=== PATIENT | female | born 1940 | race Caucasian/White ===

== ENCOUNTER 2019-01-18 18:54 | Inpatient (IN) | payer MEDICARE, MEDICAID ==
[2019-01-18] MEDS ORDERED: Sodium Chloride 0.9% 10 ML Syringe FLUSH PRN ×4 (18:55→22:24)
--- NOTE | 2019-01-18 19:03 | PCM.SN ---
- Free Text/Narrative Note: Graciela De La Cruz is a 78-year-old female who is a resident of [facility] in [place]. She has lived there since 2011. She was last seen on routine basic care rounds on January 04, 2019 and was found to be in stable condition. Earlier this week [facility] had several cases of positive influenza A in several other residents. Two of those residents are now hospitalized. I received a call from the nurse assistant office manager at [facility] stating that Graciela had some upper respiratory tract symptoms. Her vital signs were stable and she had no fever, but she was coughing. She does have a history of mild COPD which is stable. She was started on Levaquin 500 mg once daily for seven days. She was also started on Tamiflu 75 mg twice a day, both because of positive influenza in the facility and because she was symptomatic. Influenza testing was not performed. I received a call this evening from one of the aides at [facility]. She stated that Graciela had not been eating and drinking today and seems somewhat dry. When asked, she thought the Graciela possibly was making less urine but was not sure. vital signs: BP 152/85. RR 14. HR 72. Temp 98.6. O2 sat 91% on room air. She will be seen in the emergency department for further evaluation. Past Medical History: Hypertension, controlled. COPD, mild, on no active meds at this time. Depression with anxiety, stable. Cerebrovascular disease. Diverticulosis. Dyslipidemia. Osteoarthritis. Headaches in the past, resolved, thought to be vascular or due to cervical arthritis. Headaches improved with the use of Verapamil which was recently decreased. Medications: [facility] When seen on rounds on January 04, 2019 her Verapamil was decreased to 40 mg three times a day, as she has been headache free for some time now. Her sertraline was decreased to 25 mg daily, as her mood and affect were stable. impression: 78-year-old female with past medical history as above. Currently being treated for respiratory tract infection, as well as exposure to influenza. [facility] staff report decreased oral intake over the course of the day with possible mild dehydration. The case was discussed with Taran Cross NP. Copies of Graciela's most recent labs were faxed to the emergency department for review.
--- NOTE | 2019-01-18 19:03 | EDM.PDOC ---
ED HPI GENERAL MEDICAL PROBLEM - General Chief Complaint: Respiratory Problem Stated Complaint: OWN VEHICLE, DEHYDRATIO Time Seen by Provider: 01/18/19 18:56 Source of Information: Reports: Patient History Limitations: Reports: No Limitations - History of Present Illness INITIAL COMMENTS - FREE TEXT/NARRATIVE: Comes emergency department today from the basic care assisted living facility here in town with concerns of cough congestion poor appetite and generalized fatigue. The patient was exposed to influenza A. She has been on Levaquin 500 mg a day as well as Tamiflu 75 mg by mouth twice a day since . She has become increasingly more short of breath with a very congested cough. No fever no chills. No pain in her chest. Generalize fatigue and malaise. No syncope. No palpitations. No nausea no vomiting. She does complain of a headache. No diarrhea. No hematuria dysuria or urinary frequency. Headache Pain Score (Numeric/FACES): 8 - Related Data Allergies Allergy/AdvReac Type Severity Reaction Status Date / Time latex Allergy Rash Verified 01/18/19 20:51 Plastic tape AdvReac Mild Rash Uncoded 01/18/19 20:51 Home Meds: Home Meds Acetaminophen [Tylenol Extra Strength] 500 mg PO Q6HR PRN 04/04/15 [History] Acetaminophen [Tylenol] 650 mg PO TID 04/04/15 [History] Dorzolamide [Trusopt 2% Ophth Soln] 1 drop EYEBOTH BID 04/04/15 [History] Famotidine [Pepcid AC] 20 mg PO DAILY 04/04/15 [History] Fexofenadine HCl [Mae Allergy] 60 mg PO BEDTIME 04/04/15 [History] Latanoprost [Xalatan 0.005% Ophth Soln] 1 drop EYEBOTH BEDTIME 04/04/15 [History ] Aspirin 325 mg PO BRK 06/10/15 [History] Clopidogrel [Plavix] 75 mg PO DAILY 06/10/15 [History] Levofloxacin [Levaquin] 500 mg PO DAILY 01/18/19 [History] Oseltamivir [Tamiflu] 75 mg PO BID 01/18/19 [History] Sertraline [Zoloft] 25 mg PO BEDTIME 01/18/19 [History] Verapamil [Calan] 40 mg PO Q8H 01/18/19 [History] Past Medical History Other Gastrointestinal History: gastric ulcers Social & Family History - Living Situation & Occupation Living situation: Reports: , Assisted Living Occupation: Retired ED ROS GENERAL - Review of Systems Review Of Systems: ROS reveals no pertinent complaints other than HPI. ED EXAM, GENERAL - Physical Exam Exam: See Below Free Text/Narrative:: Patient is only able to speak in 3-4 word sentences. Her oxygen saturation is about 88-89% on room air does improve following the placement of 2 L of nasal cannula oxygen. Exam Limited By: No Limitations General Appearance: Alert, WD/WN, No Apparent Distress Eye Exam: Bilateral Eye: Normal Inspection Ears: Normal External Exam, Other (bilaterally occluded) Nose: Normal Inspection, Normal Mucosa Throat/Mouth: Normal Teeth, Other (Oral mucosa is quite dry.) Head: Atraumatic, Normocephalic Neck: Normal Inspection, Supple, Non-Tender Respiratory/Chest: Chest Non-Tender, Decreased Breath Sounds (Bilateral), Rhonchi (Right-sided midlung field down.), Wheezing (Lateral). No: Accessory Muscle Use, Retractions Cardiovascular: Normal Peripheral Pulses, Regular Rate, Rhythm Peripheral Pulses: 2+: Radial (L), Radial (R), Posterior Tibial (L), Posterior Tibial (R), Dorsalis Pedis (L), Dorsalis Pedis (R) GI/Abdominal: Normal Bowel Sounds, Soft, Non-Tender (Female) Exam: Deferred Rectal (Female) Exam: Deferred Back Exam: Normal Inspection, Full Range of Motion Extremities: Normal Inspection, Normal Range of Motion, No Pedal Edema, Normal Capillary Refill Neurological: Alert, Oriented, No Motor/Sensory Deficits Psychiatric: Normal Affect, Normal Mood Skin Exam: Warm, Dry, Intact, No Rash, Pallor Course - Vital Signs Last Recorded V/S: Last Vital Signs Temp 36.5 C 01/18/19 20:50 Pulse 79 01/18/19 20:50 Resp 22 H 01/18/19 20:50 BP 150/91 H 01/18/19 20:50 Pulse Ox 97 01/18/19 20:50 - Orders/Labs/Meds Orders: Active Orders 24 hr Category Date Time Status RT Aerosol Therapy [RC] ASDIRECTED Care 01/18/19 19:04 Active CULTURE BLOOD [BC] Stat Lab 01/18/19 19:00 Received CULTURE BLOOD [BC] Stat Lab 01/18/19 19:06 Results CULTURE SPUTUM + SMEAR [RM] Stat Lab 01/18/19 19:41 Ordered UA W/MICROSCOPIC [URIN] Stat Lab 01/18/19 18:56 Ordered Lactated Ringers [Ringers, Lactated] 1,000 ml Med 01/18/19 19:51 Active IV .BOLUS Sodium Chloride 0.9% [Saline Flush] Med 01/18/19 18:55 Active 10 ml FLUSH ASDIRECTED PRN Blood Culture x2 Reflex Set [OM.PC] Stat Oth 01/18/19 19:03 Ordered Peripheral IV Insertion Adult [OM.PC] Stat Oth 01/18/19 18:56 Ordered Medication Orders Lactated Ringer's (Ringers, Lactated) 1,000 mls @ 500 mls/hr IV .BOLUS ONE Stop: 01/18/19 21:50 Last Admin: 01/18/19 19:55 Dose: 500 mls/hr Sodium Chloride (Saline Flush) 10 ml FLUSH ASDIRECTED PRN PRN Reason: Keep Vein Open Last Admin: 01/18/19 19:00 Dose: 10 ml Labs: Laboratory Tests 01/18/19 01/18/19 01/18/19 Range/Units 19:00 19:00 19:00 WBC 10.0 (5.0-10.0) 10^3/uL RBC 5.22 (4.2-5.4) 10^6/uL Hgb 13.9 D (12.0-16.0) g/dL Hct 40.9 (37.0-47.0) % MCV 78.4 L D (80-100) fL MCH 26.6 L (27.0-34.0) pg MCHC 34.0 (33.0-35.0) g/dL Plt Count 245 D (150-450) 10^3/uL Neut % (Auto) 73.7 (42.2-75.2) % Lymph % (Auto) 14.7 L (20.5-50.1) % [place] % (Auto) 11.0 H (2-8) % Eos % (Auto) 0.5 L (1.0-3.0) % Baso % (Auto) 0.1 (0.0-1.0) % Sodium (135-145) mmol/L Potassium (3.6-5.0) mmol/L Chloride (101-111) mmol/L Carbon Dioxide (21.0-31.0) mmol/L Anion Gap BUN (7-18) mg/dL Creatinine (0.6-1.3) mg/dL Est Cr Clr Drug Dosing mL/min Estimated GFR (MDRD) BUN/Creatinine Ratio Glucose (74-105) mg/dL Lactic Acid 1.3 (0.5-2.2) mmol/L Calcium (8.4-10.2) mg/dl Total Bilirubin (0.2-1.0) mg/dL AST (10-42) IU/L ALT (10-60) IU/L Alkaline Phosphatase (42-121) IU/L C-Reactive Protein 18.4 H (0.0-1.3) mg/dL Total Protein (6.7-8.2) g/dl Albumin (3.2-5.5) g/dl Globulin Albumin/Globulin Ratio 01/18/19 Range/Units 19:00 WBC (5.0-10.0) 10^3/uL RBC (4.2-5.4) 10^6/uL Hgb (12.0-16.0) g/dL Hct (37.0-47.0) % MCV (80-100) fL MCH (27.0-34.0) pg MCHC (33.0-35.0) g/dL Plt Count (150-450) 10^3/uL Neut % (Auto) (42.2-75.2) % Lymph % (Auto) (20.5-50.1) % [place] % (Auto) (2-8) % Eos % (Auto) (1.0-3.0) % Baso % (Auto) (0.0-1.0) % Sodium 128 L (135-145) mmol/L Potassium 2.8 L (3.6-5.0) mmol/L Chloride 85 L (101-111) mmol/L Carbon Dioxide 27.0 (21.0-31.0) mmol/L Anion Gap 18.8 BUN 13 (7-18) mg/dL Creatinine 0.6 (0.6-1.3) mg/dL Est Cr Clr Drug Dosing 54.61 mL/min Estimated GFR (MDRD) > 60 BUN/Creatinine Ratio 21.66 Glucose 97 (74-105) mg/dL Lactic Acid (0.5-2.2) mmol/L Calcium 9.0 (8.4-10.2) mg/dl Total Bilirubin 1.2 H (0.2-1.0) mg/dL AST 27 (10-42) IU/L ALT 18 (10-60) IU/L Alkaline Phosphatase 18 L (42-121) IU/L C-Reactive Protein (0.0-1.3) mg/dL Total Protein 7.7 (6.7-8.2) g/dl Albumin 3.7 (3.2-5.5) g/dl Globulin 4.0 Albumin/Globulin Ratio 0.93 Microbiology 01/18/19 19:25 Influenza Type A Antigen Screen - Final Nasopharyngeal Swab Positive Influenza A Ag Influenza Type B Antigen Screen - Final NEGATIVE INFLUENZA B VIRUS AG 01/18/19 19:06 Anaerobic Blood Culture - Final Blood - Venous - Lab Draw Meds: Medications Generic Name Dose Route Start Last Admin Trade Name Freq PRN Reason Stop Dose Admin Lactated Ringer's 1,000 mls @ 500 mls/hr 01/18/19 19:51 01/18/19 19:55 Ringers, Lactated IV 01/18/19 21:50 500 mls/hr .BOLUS ONE Administration Sodium Chloride 10 ml 01/18/19 18:55 01/18/19 19:00 Saline Flush FLUSH 10 ml ASDIRECTED PRN Administration Keep Vein Open Discontinued Medications Generic Name Dose Route Start Last Admin Trade Name Freq PRN Reason Stop Dose Admin Albuterol/Ipratropium 3 ml 01/18/19 19:04 01/18/19 19:09 Duoneb 3.0-0.5 Mg/3 Ml NEB 01/18/19 19:05 3 ml ONETIME ONE Administration Potassium Chloride 40 meq 01/18/19 19:49 01/18/19 20:03 Potassium Chloride Solution PO 01/18/19 19:50 40 meq NOW ONE Administration - Radiology Interpretation Free Text/Narrative:: Chest x-ray per radiology shows no acute findings. Departure - Departure Time of Disposition: 20:20 Disposition: Refer to Observation Clinical Impression: COPD exacerbation, Influenza A, Hyponatremia, Hypokalemia, Hypoxia - Discharge Information ED Communication - Discussed Case With (1) Discussed Case With (1): Admitting Provider (Spoke with the hospitalist about this patient with concerns of outpatient failure of therapy for COPD exacerbation Influenza A, hyponatremia, hypokalemia, poor oral intake. HPI ER COURSE findings and concerns relayed to the hospitalist who accepted the patient in transfer at this time for observation.) - My Orders Last 24 Hours: My Active Orders 01/18/19 18:55 Sodium Chloride 0.9% [Saline Flush] 10 ml FLUSH ASDIRECTED PRN 01/18/19 18:56 UA W/MICROSCOPIC [URIN] Stat Peripheral IV Insertion Adult [OM.PC] Stat 01/18/19 19:00 CULTURE BLOOD [BC] Stat 01/18/19 19:03 Blood Culture x2 Reflex Set [OM.PC] Stat 01/18/19 19:04 RT Aerosol Therapy [RC] ASDIRECTED 01/18/19 19:06 CULTURE BLOOD [BC] Stat 01/18/19 19:41 CULTURE SPUTUM + SMEAR [RM] Stat 01/18/19 19:51 Lactated Ringers [Ringers, Lactated] 1,000 ml IV .BOLUS - Assessment/Plan Last 24 Hours: My Active Orders 01/18/19 18:55 Sodium Chloride 0.9% [Saline Flush] 10 ml FLUSH ASDIRECTED PRN 01/18/19 18:56 UA W/MICROSCOPIC [URIN] Stat Peripheral IV Insertion Adult [OM.PC] Stat 01/18/19 19:00 CULTURE BLOOD [BC] Stat 01/18/19 19:03 Blood Culture x2 Reflex Set [OM.PC] Stat 01/18/19 19:04 RT Aerosol Therapy [RC] ASDIRECTED 01/18/19 19:06 CULTURE BLOOD [BC] Stat 01/18/19 19:41 CULTURE SPUTUM + SMEAR [RM] Stat 01/18/19 19:51 Lactated Ringers [Ringers, Lactated] 1,000 ml IV .BOLUS Assessment:: Acute COPD exacerbation Influenza a Hyponatremia Hypokalemia Hypoxia Plan: Admit observation Dr. Jerome.
[2019-01-18] MEDS ORDERED: Albuterol/Ipratropium 3.0-0.5 MG/3 ML Neb Soln NEB ONE (19:04)
[2019-01-18] MEDS ORDERED: Potassium Chloride 10% 20 MEQ/15 ML Soln 15 ML UD Cup PO ONE (19:49)
[2019-01-18] MEDS ORDERED: Lactated Ringers 1,000 ML IV ONE (19:51)
[2019-01-18 19:57] LABS: SODIUM,NA 128 mmol/L (135-145)
[2019-01-18 19:58] LABS: ANION GAP 18.8; CHLORIDE,CL 85 mmol/L (101-111)
--- NOTE | 2019-01-18 22:39 | PCM.HP ---
H&P History of Present Illness - General Date of Service: 01/18/19 Admit Problem/Dx: Admission Diagnosis/Problem Admission Diagnosis/Problem Influenza due to influenza A virus Source of Information: Patient - History of Present Illness Initial Comments - Free Text/Narative: 78 yo F with PMH of COPD, hypertension, depression, anxiety disorder, HLD, osteoarthritis, glaucoma, who presents with shortness of breath, cough, anorexia , fatigue of four days duration. History is limited as patient is a poor historian Patient lives in a NH. In the past few weeks, several residents of the NH have had the flu Patient's symptoms started four days ago with shortness of breath, cough. She was started on Tamiflu and levofloxacin by her PCP on 01/16/2019. Symptoms worsened today and she was reported to be weak, unable to eat through the day and tired. No chest pain, no n/v, no abd pain, no urinary symptoms In the ED, she was afebrile, flu screen was positive for influenza A, Na was low (128) and potassium was also low 2.8. She received potassium in the ED. Headache Pain Score (Numeric/FACES): 8 - Related Data Allergies/Adverse Reactions: Allergies Allergy/AdvReac Type Severity Reaction Status Date / Time latex Allergy Rash Verified 01/18/19 20:51 Plastic tape AdvReac Mild Rash Uncoded 01/18/19 20:51 Home Medications: Home Meds Acetaminophen [Tylenol Extra Strength] 500 mg PO Q6HR PRN 04/04/15 [History] Acetaminophen [Tylenol] 650 mg PO TID 04/04/15 [History] Dorzolamide [Trusopt 2% Ophth Soln] 1 drop EYEBOTH BID 04/04/15 [History] Famotidine [Pepcid AC] 20 mg PO DAILY 04/04/15 [History] Fexofenadine HCl [Mae Allergy] 60 mg PO BEDTIME 04/04/15 [History] Latanoprost [Xalatan 0.005% Ophth Soln] 1 drop EYEBOTH BEDTIME 04/04/15 [History ] Aspirin 325 mg PO BRK 06/10/15 [History] Clopidogrel [Plavix] 75 mg PO DAILY 06/10/15 [History] Levofloxacin [Levaquin] 500 mg PO DAILY 01/18/19 [History] Oseltamivir [Tamiflu] 75 mg PO BID 01/18/19 [History] Sertraline [Zoloft] 25 mg PO BEDTIME 01/18/19 [History] Verapamil [Calan] 40 mg PO Q8H 01/18/19 [History] Past Medical History HEENT History: Reports: Glaucoma Cardiovascular History: Reports: High Cholesterol, Hypertension Respiratory History: Reports: COPD Gastrointestinal History: Reports: Diverticulosis Other Gastrointestinal History: gastric ulcers Musculoskeletal History: Reports: Osteoarthritis Psychiatric History: Reports: Anxiety Social & Family History - Family History Family Medical History: Noncontributory - Tobacco Use Smoking Status *Q: Never Smoker Second Hand Smoke Exposure: No - Caffeine Use Caffeine Use: Reports: None - Recreational Drug Use Recreational Drug Use: No - Living Situation & Occupation Living situation: Reports: , Assisted Living Occupation: Retired H&P Review of Systems - Review of Systems: Review Of Systems: ROS reveals no pertinent complaints other than HPI. Exam - Exam Exam: See Below - Vital Signs Vital Signs: Last Vital Signs Temp 36.5 C 01/18/19 20:50 Pulse 79 01/18/19 20:50 Resp 22 H 01/18/19 20:50 BP 150/91 H 01/18/19 20:50 Pulse Ox 97 01/18/19 22:24 Weight: 68.356 kg - Exam General: Alert, Oriented HEENT: Conjunctiva Clear Neck: Supple, Trachea Midline Lungs: Crackles (coarse crackles bilaterally. ) Cardiovascular: Regular Rate, Regular Rhythm GI/Abdominal Exam: Normal Bowel Sounds, Soft, Non-Tender - Patient Data Lab Results Last 24 hrs: Laboratory Results - last 24 hr 01/18/19 01/18/19 01/18/19 Range/Units 19:00 19:00 19:00 WBC 10.0 (5.0-10.0) 10^3/uL RBC 5.22 (4.2-5.4) 10^6/uL Hgb 13.9 D (12.0-16.0) g/dL Hct 40.9 (37.0-47.0) % MCV 78.4 L D (80-100) fL MCH 26.6 L (27.0-34.0) pg MCHC 34.0 (33.0-35.0) g/dL Plt Count 245 D (150-450) 10^3/uL Neut % (Auto) 73.7 (42.2-75.2) % Lymph % (Auto) 14.7 L (20.5-50.1) % [place] % (Auto) 11.0 H (2-8) % Eos % (Auto) 0.5 L (1.0-3.0) % Baso % (Auto) 0.1 (0.0-1.0) % Sodium (135-145) mmol/L Potassium (3.6-5.0) mmol/L Chloride (101-111) mmol/L Carbon Dioxide (21.0-31.0) mmol/L Anion Gap BUN (7-18) mg/dL Creatinine (0.6-1.3) mg/dL Est Cr Clr Drug Dosing mL/min Estimated GFR (MDRD) BUN/Creatinine Ratio Glucose (74-105) mg/dL Lactic Acid 1.3 (0.5-2.2) mmol/L Calcium (8.4-10.2) mg/dl Total Bilirubin (0.2-1.0) mg/dL AST (10-42) IU/L ALT (10-60) IU/L Alkaline Phosphatase (42-121) IU/L C-Reactive Protein 18.4 H (0.0-1.3) mg/dL Total Protein (6.7-8.2) g/dl Albumin (3.2-5.5) g/dl Globulin Albumin/Globulin Ratio 01/18/19 Range/Units 19:00 WBC (5.0-10.0) 10^3/uL RBC (4.2-5.4) 10^6/uL Hgb (12.0-16.0) g/dL Hct (37.0-47.0) % MCV (80-100) fL MCH (27.0-34.0) pg MCHC (33.0-35.0) g/dL Plt Count (150-450) 10^3/uL Neut % (Auto) (42.2-75.2) % Lymph % (Auto) (20.5-50.1) % [place] % (Auto) (2-8) % Eos % (Auto) (1.0-3.0) % Baso % (Auto) (0.0-1.0) % Sodium 128 L (135-145) mmol/L Potassium 2.8 L (3.6-5.0) mmol/L Chloride 85 L (101-111) mmol/L Carbon Dioxide 27.0 (21.0-31.0) mmol/L Anion Gap 18.8 BUN 13 (7-18) mg/dL Creatinine 0.6 (0.6-1.3) mg/dL Est Cr Clr Drug Dosing 54.61 mL/min Estimated GFR (MDRD) > 60 BUN/Creatinine Ratio 21.66 Glucose 97 (74-105) mg/dL Lactic Acid (0.5-2.2) mmol/L Calcium 9.0 (8.4-10.2) mg/dl Total Bilirubin 1.2 H (0.2-1.0) mg/dL AST 27 (10-42) IU/L ALT 18 (10-60) IU/L Alkaline Phosphatase 18 L (42-121) IU/L C-Reactive Protein (0.0-1.3) mg/dL Total Protein 7.7 (6.7-8.2) g/dl Albumin 3.7 (3.2-5.5) g/dl Globulin 4.0 Albumin/Globulin Ratio 0.93 Result Diagrams: 01/18/19 19:00 01/18/19 19:00 Kendrick Results Last 24 hrs: Microbiology 01/18/19 19:41 Gram Stain - Final Sputum - Expectorated 01/18/19 19:25 Influenza Type A Antigen Screen - Final Nasopharyngeal Swab Positive Influenza A Ag Influenza Type B Antigen Screen - Final NEGATIVE INFLUENZA B VIRUS AG 01/18/19 19:06 Anaerobic Blood Culture - Final Blood - Venous - Lab Draw Problem List Initiated/Reviewed/Updated: Yes Orders Last 24hrs: Active Orders 24 hr Category Date Time Status Patient Status [ADT] Routine ADT 01/18/19 22:24 Ordered Ambulate [RC] ASDIRECTED Care 01/18/19 22:24 Ordered Height and Weight [RC] DAILY Care 01/18/19 22:24 Ordered Oxygen Therapy [RC] PRN Care 01/18/19 22:24 Ordered Peripheral IV Care [RC] . DIRECTED Care 01/18/19 22:24 Ordered Peripheral IV Care [RC] . DIRECTED Care 01/18/19 22:24 Ordered Peripheral IV Care [RC] . DIRECTED Care 01/18/19 22:24 Ordered RT Aerosol Therapy [RC] ASDIRECTED Care 01/18/19 19:04 Active RT Aerosol Therapy [RC] ASDIRECTED Care 01/18/19 22:30 Ordered Up With Assistance [RC] ASDIRECTED Care 01/18/19 22:24 Ordered VTE/DVT Education [RC] PER UNIT ROUTINE Care 01/18/19 22:24 Ordered Vital Signs [RC] Q4H Care 01/18/19 22:24 Ordered Regular Diet [DIET] Diet 01/18/19 Breakfast Ordered BASIC METABOLIC PANEL,BMP [CHEM] AM Lab 01/19/19 05:11 Ordered BASIC METABOLIC PANEL,BMP [CHEM] AM Lab 01/20/19 05:11 Ordered BASIC METABOLIC PANEL,BMP [CHEM] AM Lab 01/21/19 05:11 Ordered CBC WITH AUTO DIFF [HEME] AM Lab 01/19/19 05:11 Ordered CBC WITH AUTO DIFF [HEME] AM Lab 01/20/19 05:11 Ordered CBC WITH AUTO DIFF [HEME] AM Lab 01/21/19 05:11 Ordered CULTURE BLOOD [BC] Stat Lab 01/18/19 19:00 Received CULTURE BLOOD [BC] Stat Lab 01/18/19 19:06 Results CULTURE SPUTUM + SMEAR [RM] Stat Lab 01/18/19 19:41 Ordered Acetaminophen [Tylenol] Med 01/18/19 22:30 Ordered 650 mg PO Q6H PRN Albuterol [Proventil Neb Soln] Med 01/18/19 22:29 Ordered 2.5 mg NEB Q4HRRT PRN Albuterol/Ipratropium [DuoNeb 3.0-0.5 MG/3 ML] Med 01/19/19 01:00 Ordered 3 ml NEB Q6HRRT Aspirin Med 01/19/19 08:00 Ordered 325 mg PO BRK Clopidogrel [Plavix] Med 01/19/19 09:00 Ordered 75 mg PO DAILY Dextrose 5%-Normal Saline with KCl 20 mEq @ 125 mL/Hr ( Med 01/18/19 22:30 Ordered 1000 mL) Dextrose 5%-0.9% NaCl with KCl [D5 NS with 20 mEq KCl] 1,000 ml IV ASDIRECTED Dorzolamide [Trusopt 2% Ophth Soln] Med 01/19/19 09:00 Ordered 1 drop EYEBOTH BID Enoxaparin [Lovenox] Med 01/19/19 09:00 Ordered 40 mg SUBCUT DAILY Famotidine [Pepcid] Med 01/19/19 09:00 Ordered 20 mg PO DAILY Latanoprost [Xalatan 0.005% Ophth Soln] Med 01/19/19 21:00 Ordered 1 drop EYEBOTH BEDTIME Oseltamivir [Tamiflu] Med 01/18/19 22:45 Ordered 75 mg PO BID Sertraline [Zoloft] Med 01/19/19 21:00 Ordered 25 mg PO BEDTIME Sodium Chloride 0.9% [Saline Flush] Med 01/18/19 18:55 Active 10 ml FLUSH ASDIRECTED PRN Sodium Chloride 0.9% [Saline Flush] Med 01/18/19 22:24 Ordered 10 ml FLUSH ASDIRECTED PRN Sodium Chloride 0.9% [Saline Flush] Med 01/18/19 22:24 Ordered 10 ml FLUSH ASDIRECTED PRN Sodium Chloride 0.9% [Saline Flush] Med 01/18/19 22:24 Ordered 10 ml FLUSH ASDIRECTED PRN Verapamil [Calan] Med 01/18/19 22:30 Ordered 40 mg PO Q8H Blood Culture x2 Reflex Set [OM.PC] Stat Oth 01/18/19 19:03 Ordered Peripheral IV Insertion Adult [OM.PC] Routine Oth 01/18/19 22:24 Ordered Peripheral IV Insertion Adult [OM.PC] Stat Oth 01/18/19 18:56 Ordered Saline Lock Insert [OM.PC] Routine Oth 01/18/19 22:24 Ordered Code Status [Resuscitation Status] Routine Resus Stat 01/18/19 22:25 Ordered Medication Orders Acetaminophen (Tylenol) 650 mg PO Q6H PRN PRN Reason: Fever Sodium Chloride (Saline Flush) 10 ml FLUSH ASDIRECTED PRN PRN Reason: Keep Vein Open Last Admin: 01/18/19 19:00 Dose: 10 ml Sodium Chloride (Saline Flush) 10 ml FLUSH ASDIRECTED PRN PRN Reason: Keep Vein Open Sodium Chloride (Saline Flush) 10 ml FLUSH ASDIRECTED PRN PRN Reason: Keep Vein Open Sodium Chloride (Saline Flush) 10 ml FLUSH ASDIRECTED PRN PRN Reason: Keep Vein Open Assessment/Plan Comment:: Influenza A infection -continue tamiflu -supportive measures: IV fluid hydration, prn tylenol -cxr clear, WBC and lactic acid normal, BP normal. Will hold abx for now. -monitor CBC daily Hyponatremia -Na 128 -no headaches, BAT[employer] symptoms -will monitor Na for now -continue IV Fluids Hypokalemia -replenish potassium orally and IV Hypertension -continue verapamil, home med ANxiety/Depression -continue sertraline DVT ppx -SC lovenox FC
[2019-01-18] MEDS: OSELTAMIVIR 75 MG PO SCH (22:50)
[2019-01-18] MEDS: Dextrose 5%-0.9% NaCl with KCl 1,000 ML IV SCH (23:03)
[2019-01-18] MEDS: Acetaminophen 325 MG Tab PO PRN (23:04)
[2019-01-18] MEDS: VERAPAMIL 40 MG PO SCH (23:04)
[2019-01-18] MEDS: Albuterol 0.083% 2.5 MG/3 ML Neb Soln NEB PRN (23:05)
[2019-01-19] MEDS: Albuterol/Ipratropium 3.0-0.5 MG/3 ML Neb Soln NEB SCH ×4 (00:56→17:51)
[2019-01-19] MEDS: VERAPAMIL 40 MG PO SCH ×4 (06:33→21:59)
[2019-01-19 07:09] LABS: CHLORIDE,CL 91 mmol/L (101-111); SODIUM,NA 131 mmol/L (135-145)
[2019-01-19] MEDS: Dextrose 5%-0.9% NaCl with KCl 1,000 ML IV SCH ×2 (07:32→16:04)
[2019-01-19] MEDS: Aspirin 325 MG Tab PO SCH (07:33)
[2019-01-19] MEDS ORDERED: Potassium Chloride 10 MEQ Tab.ER PO ONE (09:40)
[2019-01-19] MEDS: Famotidine 20 MG Tab**OWN MED PO SCH ×2 (09:48→11:08)
[2019-01-19] MEDS: Clopidogrel 75 MG Tab**OWN MED PO SCH ×2 (09:49→11:08)
[2019-01-19] MEDS: DORZOLAMIDE 2% EYEBOTH SCH ×2 (09:49→21:16)
[2019-01-19] MEDS: OSELTAMIVIR 75 MG PO SCH ×3 (09:49→21:15)
--- NOTE | 2019-01-19 10:39 | PCM.PN ---
- General Info Date of Service: 01/19/19 Admission Dx/Problem (Free Text): Admission Diagnosis/Problem Admission Diagnosis/Problem Influenza due to influenza A virus Subjective Update: 78 yo F admitted with the flu, poor appetite SOB has improved, no fever overnight Still has poor appetite - Review of Systems General: Denies: Fever HEENT: Reports: No Symptoms Pulmonary: Reports: Shortness of Breath Cardiovascular: Reports: No Symptoms Gastrointestinal: Reports: No Symptoms Genitourinary: Reports: No Symptoms Musculoskeletal: Reports: No Symptoms - Patient Data Vitals - Most Recent: Last Vital Signs Temp 36.6 C 01/19/19 08:13 Pulse 70 01/19/19 08:13 Resp 20 01/19/19 08:13 BP 94/81 01/19/19 08:13 Pulse Ox 97 01/19/19 08:13 Weight - Most Recent: 69.309 kg I&O - Last 24 Hours: Intake & Output 01/18/19 01/19/19 01/19/19 22:59 06:59 14:59 Intake Total 555 819 Output Total 600 Balance -45 819 Lab Results Last 24 Hours: Laboratory Results - last 24 hr 01/18/19 01/18/19 01/18/19 Range/Units 19:00 19:00 19:00 WBC 10.0 (5.0-10.0) 10^3/uL RBC 5.22 (4.2-5.4) 10^6/uL Hgb 13.9 D (12.0-16.0) g/dL Hct 40.9 (37.0-47.0) % MCV 78.4 L D (80-100) fL MCH 26.6 L (27.0-34.0) pg MCHC 34.0 (33.0-35.0) g/dL Plt Count 245 D (150-450) 10^3/uL Neut % (Auto) 73.7 (42.2-75.2) % Lymph % (Auto) 14.7 L (20.5-50.1) % [place] % (Auto) 11.0 H (2-8) % Eos % (Auto) 0.5 L (1.0-3.0) % Baso % (Auto) 0.1 (0.0-1.0) % Sodium (135-145) mmol/L Potassium (3.6-5.0) mmol/L Chloride (101-111) mmol/L Carbon Dioxide (21.0-31.0) mmol/L Anion Gap BUN (7-18) mg/dL Creatinine (0.6-1.3) mg/dL Est Cr Clr Drug Dosing mL/min Estimated GFR (MDRD) BUN/Creatinine Ratio Glucose (74-105) mg/dL Lactic Acid 1.3 (0.5-2.2) mmol/L Calcium (8.4-10.2) mg/dl Total Bilirubin (0.2-1.0) mg/dL AST (10-42) IU/L ALT (10-60) IU/L Alkaline Phosphatase (42-121) IU/L C-Reactive Protein 18.4 H (0.0-1.3) mg/dL Total Protein (6.7-8.2) g/dl Albumin (3.2-5.5) g/dl Globulin Albumin/Globulin Ratio 01/18/19 01/19/19 01/19/19 Range/Units 19:00 05:50 05:50 WBC 6.8 (5.0-10.0) 10^3/uL RBC 4.24 (4.2-5.4) 10^6/uL Hgb 11.3 L D (12.0-16.0) g/dL Hct 34.2 L (37.0-47.0) % MCV 80.7 (80-100) fL MCH 26.7 L (27.0-34.0) pg MCHC 33.0 (33.0-35.0) g/dL Plt Count 211 (150-450) 10^3/uL Neut % (Auto) 74.3 (42.2-75.2) % Lymph % (Auto) 13.2 L (20.5-50.1) % [place] % (Auto) 12.0 H (2-8) % Eos % (Auto) 0.4 L (1.0-3.0) % Baso % (Auto) 0.1 (0.0-1.0) % Sodium 128 L 131 L (135-145) mmol/L Potassium 2.8 L 3.0 L (3.6-5.0) mmol/L Chloride 85 L 91 L (101-111) mmol/L Carbon Dioxide 27.0 27.0 (21.0-31.0) mmol/L Anion Gap 18.8 16.0 BUN 13 11 (7-18) mg/dL Creatinine 0.6 0.5 L (0.6-1.3) mg/dL Est Cr Clr Drug Dosing 54.61 65.53 mL/min Estimated GFR (MDRD) > 60 > 60 BUN/Creatinine Ratio 21.66 Glucose 97 127 H (74-105) mg/dL Lactic Acid (0.5-2.2) mmol/L Calcium 9.0 8.5 (8.4-10.2) mg/dl Total Bilirubin 1.2 H (0.2-1.0) mg/dL AST 27 (10-42) IU/L ALT 18 (10-60) IU/L Alkaline Phosphatase 18 L (42-121) IU/L C-Reactive Protein (0.0-1.3) mg/dL Total Protein 7.7 (6.7-8.2) g/dl Albumin 3.7 (3.2-5.5) g/dl Globulin 4.0 Albumin/Globulin Ratio 0.93 Kendrick Results Last 24 Hours: Microbiology 01/18/19 19:41 Gram Stain - Final Sputum - Expectorated 01/18/19 19:25 Influenza Type A Antigen Screen - Final Nasopharyngeal Swab Positive Influenza A Ag Influenza Type B Antigen Screen - Final NEGATIVE INFLUENZA B VIRUS AG 01/18/19 19:06 Anaerobic Blood Culture - Final Blood - Venous - Lab Draw Med Orders - Current: Current Medications Acetaminophen (Tylenol) 650 mg PO Q6H PRN PRN Reason: Fever Last Admin: 01/18/19 23:04 Dose: 650 mg Albuterol (Proventil Neb Soln) 2.5 mg NEB Q4HRRT PRN PRN Reason: Shortness of Breath Last Admin: 01/18/19 23:05 Dose: 2.5 mg Albuterol/Ipratropium (Duoneb 3.0-0.5 Mg/3 Ml) 3 ml NEB Q6HRRT REPLACED BY [facility] Last Admin: 01/19/19 07:33 Dose: 3 ml Aspirin (Aspirin) 325 mg PO BRK REPLACED BY [facility] Last Admin: 01/19/19 07:33 Dose: 325 mg Clopidogrel Bisulfate (Plavix) 75 mg PO DAILY REPLACED BY [facility] Last Admin: 01/19/19 09:49 Dose: Not Given Dorzolamide HCl (Trusopt 2% Ophth Soln) 0 ml EYEBOTH BID REPLACED BY [facility] Last Admin: 01/19/19 09:49 Dose: Not Given Enoxaparin Sodium (Lovenox) 40 mg SUBCUT DAILY REPLACED BY [facility] Famotidine (Pepcid) 20 mg PO DAILY REPLACED BY [facility] Last Admin: 01/19/19 09:48 Dose: Not Given Potassium Chloride/Dextrose/Sod Cl (D5 Ns With 20 Meq Kcl) 1,000 mls @ 125 mls/ hr IV ASDIRECTED REPLACED BY [facility] Last Admin: 01/19/19 07:32 Dose: 125 mls/hr Latanoprost (Xalatan 0.005% Ophth Soln) 0 ml EYEBOTH BEDTIME REPLACED BY [facility] Oseltamivir Phosphate (Tamiflu) 75 mg PO BID REPLACED BY [facility] Stop: 01/22/19 22:46 Last Admin: 01/19/19 09:49 Dose: Not Given Sertraline HCl (Zoloft) 25 mg PO BEDTIME REPLACED BY [facility] Sodium Chloride (Saline Flush) 10 ml FLUSH ASDIRECTED PRN PRN Reason: Keep Vein Open Verapamil HCl (Calan) 40 mg PO Q8H REPLACED BY [facility] Last Admin: 01/19/19 06:33 Dose: 40 mg Discontinued Medications Albuterol/Ipratropium (Duoneb 3.0-0.5 Mg/3 Ml) 3 ml NEB ONETIME ONE Stop: 01/18/19 19:05 Last Admin: 01/18/19 19:09 Dose: 3 ml Lactated Ringer's (Ringers, Lactated) 1,000 mls @ 500 mls/hr IV .BOLUS ONE Stop: 01/18/19 21:50 Last Infusion: 01/18/19 23:37 Dose: Infused Potassium Chloride (Potassium Chloride Solution) 40 meq PO NOW ONE Stop: 01/18/19 19:50 Last Admin: 01/18/19 20:03 Dose: 40 meq Potassium Chloride (Klor-Con 10) 40 meq PO ONETIME ONE Stop: 01/19/19 09:41 Sodium Chloride (Saline Flush) 10 ml FLUSH ASDIRECTED PRN PRN Reason: Keep Vein Open Last Admin: 01/18/19 19:00 Dose: 10 ml Sodium Chloride (Saline Flush) 10 ml FLUSH ASDIRECTED PRN PRN Reason: Keep Vein Open Sodium Chloride (Saline Flush) 10 ml FLUSH ASDIRECTED PRN PRN Reason: Keep Vein Open - Exam General: Alert, Oriented HEENT: Pupils Equal Neck: Supple Lungs: Crackles Cardiovascular: Regular Rate, Regular Rhythm GI/Abdominal Exam: Normal Bowel Sounds, Soft, Non-Tender - Problem List Review Problem List Initiated/Reviewed/Updated: Yes - My Orders Last 24 Hours: My Active Orders 01/18/19 22:24 Patient Status [ADT] Routine Ambulate [RC] ASDIRECTED Height and Weight [RC] 0600 Oxygen Therapy [RC] PRN Peripheral IV Care [RC] 08,20 Up With Assistance [RC] ASDIRECTED VTE/DVT Education [RC] PER UNIT ROUTINE Vital Signs [RC] Q4H Sodium Chloride 0.9% [Saline Flush] 10 ml FLUSH ASDIRECTED PRN Peripheral IV Insertion Adult [OM.PC] Routine Saline Lock Insert [OM.PC] Routine 01/18/19 22:25 Code Status [Resuscitation Status] Routine 01/18/19 22:29 Albuterol [Proventil Neb Soln] 2.5 mg NEB Q4HRRT PRN 01/18/19 22:30 RT Aerosol Therapy [RC] 0100,0700,1300,1800 Acetaminophen [Tylenol] 650 mg PO Q6H PRN Dextrose 5%-0.9% NaCl with KCl [D5 NS with 20 mEq KCl] 1,000 ml IV ASDIRECTED Verapamil [Calan] 40 mg PO Q8H 01/18/19 22:45 Oseltamivir [Tamiflu] 75 mg PO BID 01/19/19 01:00 Albuterol/Ipratropium [DuoNeb 3.0-0.5 MG/3 ML] 3 ml NEB Q6HRRT 01/19/19 08:00 Aspirin 325 mg PO BRK 01/19/19 09:00 Clopidogrel [Plavix] 75 mg PO DAILY Dorzolamide [Trusopt 2% Ophth Soln] 0 ml EYEBOTH BID Enoxaparin [Lovenox] 40 mg SUBCUT DAILY Famotidine [Pepcid] 20 mg PO DAILY 01/19/19 10:36 Dextromethorphan/guaiFENesin [Robitussin DM] 5 ml PO Q4H PRN 01/19/19 21:00 Latanoprost [Xalatan 0.005% Ophth Soln] 0 ml EYEBOTH BEDTIME Sertraline [Zoloft] 25 mg PO BEDTIME 01/20/19 05:11 BASIC METABOLIC PANEL,BMP [CHEM] AM CBC WITH AUTO DIFF [HEME] AM 01/21/19 05:11 BASIC METABOLIC PANEL,BMP [CHEM] AM CBC WITH AUTO DIFF [HEME] AM - Plan Plan:: Influenza A infection -continue tamiflu -supportive measures: IV fluid hydration, prn tylenol -cxr clear, WBC and lactic acid normal, BP normal. Will hold abx for now. -monitor CBC daily Hyponatremia, improving -will monitor Na for now -continue IV Fluids Hypokalemia -replenish potassium orally and IV Hypertension -continue verapamil, home med ANxiety/Depression -continue sertraline DVT ppx -SC lovenox FC
[2019-01-19] MEDS: Acetaminophen 325 MG Tab PO PRN (11:07)
[2019-01-19] MEDS: Enoxaparin 40 MG/0.4 ML Syringe SUBCUT SCH (11:07)
[2019-01-19] MEDS: SERTRALINE 25 MG PO SCH (21:15)
[2019-01-19] MEDS: Latanoprost 0.005% Ophth Soln 2.5 ML Bottle**OWN MED EYEBOTH SCH (21:17)
[2019-01-20] MEDS: Dextrose 5%-0.9% NaCl with KCl 1,000 ML IV SCH ×3 (00:18→23:13)
[2019-01-20] MEDS: Albuterol/Ipratropium 3.0-0.5 MG/3 ML Neb Soln NEB SCH ×4 (01:02→17:04)
[2019-01-20] MEDS: VERAPAMIL 40 MG PO SCH ×3 (05:42→21:59)
[2019-01-20 08:14] LABS: ANION GAP 14.4; CHLORIDE,CL 94 mmol/L (101-111); SODIUM,NA 130 mmol/L (135-145)
[2019-01-20] MEDS: OSELTAMIVIR 75 MG PO SCH ×2 (08:29→21:57)
[2019-01-20] MEDS: Clopidogrel 75 MG Tab**OWN MED PO SCH (08:30)
[2019-01-20] MEDS: Aspirin 325 MG Tab PO SCH (08:31)
[2019-01-20] MEDS: Famotidine 20 MG Tab**OWN MED PO SCH (08:31)
[2019-01-20] MEDS: DORZOLAMIDE 2% EYEBOTH SCH ×2 (08:33→21:57)
[2019-01-20] MEDS: Enoxaparin 40 MG/0.4 ML Syringe SUBCUT SCH (09:18)
[2019-01-20] MEDS ORDERED: Potassium Chloride 10 MEQ Tab.ER PO ONE (09:30)
--- NOTE | 2019-01-20 10:09 | PCM.PN ---
- General Info Date of Service: 01/20/19 Admission Dx/Problem (Free Text): Admission Diagnosis/Problem Admission Diagnosis/Problem Influenza due to influenza A virus Subjective Update: 78 yo F admitted with the flu, poor appetite SOB has improved, no fever overnight appetite is improved, ate 50% of supper last night - Review of Systems General: Reports: No Symptoms HEENT: Reports: No Symptoms Pulmonary: Reports: No Symptoms Cardiovascular: Reports: No Symptoms Gastrointestinal: Reports: No Symptoms Genitourinary: Reports: No Symptoms - Patient Data Vitals - Most Recent: Last Vital Signs Temp 36.6 C 01/19/19 20:00 Pulse 69 01/20/19 09:40 Resp 16 01/19/19 20:00 BP 163/53 H 01/19/19 20:00 Pulse Ox 92 L 01/20/19 09:40 Weight - Most Recent: 69.944 kg I&O - Last 24 Hours: Intake & Output 01/19/19 01/20/19 01/20/19 22:59 06:59 14:59 Intake Total 460 250 Output Total 1000 1500 Balance -540 -1250 Lab Results Last 24 Hours: Laboratory Results - last 24 hr 01/20/19 01/20/19 Range/Units 06:15 06:15 WBC 7.2 (5.0-10.0) 10^3/uL RBC 4.74 (4.2-5.4) 10^6/uL Hgb 12.5 (12.0-16.0) g/dL Hct 38.3 (37.0-47.0) % MCV 80.8 (80-100) fL MCH 26.4 L (27.0-34.0) pg MCHC 32.6 L (33.0-35.0) g/dL Plt Count 272 (150-450) 10^3/uL Neut % (Auto) 72.2 (42.2-75.2) % Lymph % (Auto) 13.7 L (20.5-50.1) % [place] % (Auto) 11.3 H (2-8) % Eos % (Auto) 2.8 (1.0-3.0) % Baso % (Auto) 0.0 (0.0-1.0) % Sodium 130 L (135-145) mmol/L Potassium 3.4 L (3.6-5.0) mmol/L Chloride 94 L (101-111) mmol/L Carbon Dioxide 25.0 (21.0-31.0) mmol/L Anion Gap 14.4 BUN < 5 L (7-18) mg/dL Creatinine 0.5 L (0.6-1.3) mg/dL Est Cr Clr Drug Dosing 65.53 mL/min Estimated GFR (MDRD) > 60 Glucose 112 H (74-105) mg/dL Calcium 8.7 (8.4-10.2) mg/dl Kendrick Results Last 24 Hours: Microbiology 01/18/19 19:41 Gram Stain - Final Sputum - Expectorated Sputum Culture - Preliminary YEAST 01/18/19 19:06 Aerobic Blood Culture - Preliminary Blood - Venous - Lab Draw NO GROWTH AFTER 1 DAY Anaerobic Blood Culture - Final 01/18/19 19:00 Aerobic Blood Culture - Preliminary Blood - Venous NO GROWTH AFTER 1 DAY Anaerobic Blood Culture - Preliminary NO GROWTH AFTER 1 DAY Med Orders - Current: Current Medications Acetaminophen (Tylenol) 650 mg PO Q6H PRN PRN Reason: Fever Last Admin: 01/19/19 11:07 Dose: 650 mg Albuterol (Proventil Neb Soln) 2.5 mg NEB Q4HRRT PRN PRN Reason: Shortness of Breath Last Admin: 01/18/19 23:05 Dose: 2.5 mg Albuterol/Ipratropium (Duoneb 3.0-0.5 Mg/3 Ml) 3 ml NEB Q6HRRT [facility] Last Admin: 01/20/19 09:35 Dose: 3 ml Aspirin (Aspirin) 325 mg PO BRK [facility] Last Admin: 01/20/19 08:31 Dose: 325 mg Clopidogrel Bisulfate (Plavix) 75 mg PO DAILY [facility] Last Admin: 01/20/19 08:30 Dose: 75 mg Dorzolamide HCl (Trusopt 2% Ophth Soln) 0 ml EYEBOTH BID [facility] Last Admin: 01/20/19 08:33 Dose: 2 drop Enoxaparin Sodium (Lovenox) 40 mg SUBCUT DAILY [facility] Last Admin: 01/20/19 09:18 Dose: 40 mg Famotidine (Pepcid) 20 mg PO DAILY [facility] Last Admin: 01/20/19 08:31 Dose: 20 mg Guaifenesin/Phenylephrine HCl (Robitussin Dm) 5 ml PO Q4H PRN PRN Reason: Cough Potassium Chloride/Dextrose/Sod Cl (D5 Ns With 20 Meq Kcl) 1,000 mls @ 75 mls/ hr IV ASDIRECTED [facility]ATH[facility]EL Last Admin: 01/20/19 09:46 Dose: 125 mls/hr Latanoprost (Xalatan 0.005% Ophth Soln) 0 ml EYEBOTH BEDTIME [facility] Last Admin: 01/19/19 21:17 Dose: 1 drop Sertraline 25mgOwn (Med) 1 each PO BEDTIME [facility] Last Admin: 01/19/19 21:15 Dose: 1 each Oseltamivir Phosphate (Tamiflu) 75 mg PO BID [facility] Stop: 01/22/19 22:46 Last Admin: 01/20/19 08:29 Dose: 75 mg Sodium Chloride (Saline Flush) 10 ml FLUSH ASDIRECTED PRN PRN Reason: Keep Vein Open Verapamil HCl (Calan) 40 mg PO Q8H [facility] Last Admin: 01/20/19 05:42 Dose: 40 mg Discontinued Medications Albuterol/Ipratropium (Duoneb 3.0-0.5 Mg/3 Ml) 3 ml NEB ONETIME ONE Stop: 01/18/19 19:05 Last Admin: 01/18/19 19:09 Dose: 3 ml Lactated Ringer's (Ringers, Lactated) 1,000 mls @ 500 mls/hr IV .BOLUS ONE Stop: 01/18/19 21:50 Last Infusion: 01/18/19 23:37 Dose: Infused Potassium Chloride (Potassium Chloride Solution) 40 meq PO NOW ONE Stop: 01/18/19 19:50 Last Admin: 01/18/19 20:03 Dose: 40 meq Potassium Chloride (Klor-Con 10) 40 meq PO ONETIME ONE Stop: 01/19/19 09:41 Last Admin: 01/19/19 11:07 Dose: 40 meq Potassium Chloride (Klor-Con 10) 40 meq PO ONETIME ONE Stop: 01/20/19 09:31 Last Admin: 01/20/19 09:33 Dose: 40 meq Sodium Chloride (Saline Flush) 10 ml FLUSH ASDIRECTED PRN PRN Reason: Keep Vein Open Last Admin: 01/18/19 19:00 Dose: 10 ml Sodium Chloride (Saline Flush) 10 ml FLUSH ASDIRECTED PRN PRN Reason: Keep Vein Open Sodium Chloride (Saline Flush) 10 ml FLUSH ASDIRECTED PRN PRN Reason: Keep Vein Open - Exam General: Alert, Oriented HEENT: Pupils Equal Neck: Supple Lungs: Clear to Auscultation, Crackles (improved) Cardiovascular: Regular Rate, Regular Rhythm GI/Abdominal Exam: Normal Bowel Sounds - Problem List Review Problem List Initiated/Reviewed/Updated: Yes - My Orders Last 24 Hours: My Active Orders 01/19/19 10:36 Dextromethorphan/guaiFENesin [Robitussin DM] 5 ml PO Q4H PRN 01/19/19 21:00 Latanoprost [Xalatan 0.005% Ophth Soln] 0 ml EYEBOTH BEDTIME Non-Formulary Medication [NF Drug] 1 each PO BEDTIME 01/20/19 09:11 OT Evaluation and Treatment [CONS] Routine PT Evaluation and Treatment [CONS] Routine 01/21/19 05:11 BASIC METABOLIC PANEL,BMP [CHEM] AM CBC WITH AUTO DIFF [HEME] AM - Plan Plan:: Influenza A infection -continue tamiflu -supportive measures: IV fluid hydration, prn tylenol -cxr clear, WBC and lactic acid normal, BP normal. Will hold abx for now. -monitor CBC daily Hyponatremia, improving -will monitor Na for now -continue IV Fluids Hypokalemia -replenish potassium orally and IV Hypertension -continue verapamil, home med ANxiety/Depression -continue sertraline DVT ppx -SC lovenox FC
[2019-01-20] MEDS: Latanoprost 0.005% Ophth Soln 2.5 ML Bottle**OWN MED EYEBOTH SCH (21:57)
[2019-01-20] MEDS: SERTRALINE 25 MG PO SCH (21:57)
[2019-01-21] MEDS: Albuterol/Ipratropium 3.0-0.5 MG/3 ML Neb Soln NEB SCH ×4 (03:53→18:17)
[2019-01-21] MEDS: VERAPAMIL 40 MG PO SCH ×4 (06:22→22:52)
[2019-01-21 06:51] LABS: CHLORIDE,CL 93 mmol/L (101-111); SODIUM,NA 129 mmol/L (135-145)
[2019-01-21] MEDS: Clopidogrel 75 MG Tab**OWN MED PO SCH (09:00)
[2019-01-21] MEDS: OSELTAMIVIR 75 MG PO SCH ×2 (09:00→20:47)
[2019-01-21] MEDS: Famotidine 20 MG Tab**OWN MED PO SCH (09:00)
[2019-01-21] MEDS: DORZOLAMIDE 2% EYEBOTH SCH ×2 (09:01→21:03)
[2019-01-21] MEDS: Aspirin 325 MG Tab PO SCH (09:01)
[2019-01-21] MEDS: Enoxaparin 40 MG/0.4 ML Syringe SUBCUT SCH (09:01)
[2019-01-21] MEDS: Dextrose 5%-0.9% NaCl with KCl 1,000 ML IV SCH ×2 (09:03→22:29)
[2019-01-21] MEDS: SERTRALINE 25 MG PO SCH (20:46)
[2019-01-21] MEDS: Latanoprost 0.005% Ophth Soln 2.5 ML Bottle**OWN MED EYEBOTH SCH (20:59)
[2019-01-22] MEDS: Albuterol/Ipratropium 3.0-0.5 MG/3 ML Neb Soln NEB SCH ×4 (00:40→17:58)
[2019-01-22] MEDS: Aspirin 81 MG Tab.Chew PO SCH (09:28)
[2019-01-22] MEDS: Clopidogrel 75 MG Tab**OWN MED PO SCH (09:28)
[2019-01-22] MEDS: Enoxaparin 40 MG/0.4 ML Syringe SUBCUT SCH (09:28)
[2019-01-22] MEDS: Famotidine 20 MG Tab**OWN MED PO SCH (09:28)
[2019-01-22] MEDS: DORZOLAMIDE 2% EYEBOTH SCH ×2 (10:06→21:06)
--- NOTE | 2019-01-22 10:10 | PCM.PN ---
- General Info Date of Service: 01/22/19 Admission Dx/Problem (Free Text): Admission Diagnosis/Problem Admission Diagnosis/Problem Influenza due to influenza A virus - Review of Systems General: Reports: Weakness, Fatigue Pulmonary: Reports: Shortness of Breath, Cough Cardiovascular: Reports: No Symptoms Gastrointestinal: Reports: Decreased Appetite Genitourinary: Reports: No Symptoms - Patient Data Vitals - Most Recent: Last Vital Signs Temp 37.3 C 01/22/19 03:24 Pulse 82 01/22/19 03:24 Resp 20 01/22/19 03:24 BP 151/73 H 01/22/19 03:24 Pulse Ox 91 L 01/22/19 07:00 Weight - Most Recent: 67.857 kg I&O - Last 24 Hours: Intake & Output 01/21/19 01/22/19 01/22/19 22:59 06:59 14:59 Intake Total 1301 938 Output Total 550 Balance 1301 388 Kendrick Results Last 24 Hours: Microbiology 01/18/19 19:06 Aerobic Blood Culture - Preliminary Blood - Venous - Lab Draw NO GROWTH AFTER 3 DAYS Anaerobic Blood Culture - Final 01/18/19 19:00 Aerobic Blood Culture - Preliminary Blood - Venous NO GROWTH AFTER 3 DAYS Anaerobic Blood Culture - Preliminary NO GROWTH AFTER 3 DAYS 01/18/19 19:41 Gram Stain - Final Sputum - Expectorated Sputum Culture - Final YEAST Med Orders - Current: Current Medications Acetaminophen (Tylenol) 650 mg PO Q6H PRN PRN Reason: Fever Last Admin: 01/19/19 11:07 Dose: 650 mg Albuterol (Proventil Neb Soln) 2.5 mg NEB Q4HRRT PRN PRN Reason: Shortness of Breath Last Admin: 01/18/19 23:05 Dose: 2.5 mg Albuterol/Ipratropium (Duoneb 3.0-0.5 Mg/3 Ml) 3 ml NEB Q6HRRT [facility] Last Admin: 01/22/19 07:20 Dose: 3 ml Aspirin (Aspirin) 81 mg PO WITHBREAKFAST [facility] Last Admin: 01/22/19 09:28 Dose: 81 mg Clopidogrel Bisulfate (Plavix) 75 mg PO DAILY [facility] Last Admin: 01/22/19 09:28 Dose: 75 mg Dorzolamide HCl (Trusopt 2% Ophth Soln) 0 ml EYEBOTH BID [facility] Last Admin: 01/21/19 21:03 Dose: 1 drop Enoxaparin Sodium (Lovenox) 40 mg SUBCUT DAILY [facility] Last Admin: 01/22/19 09:28 Dose: 40 mg Famotidine (Pepcid) 20 mg PO DAILY [facility] Last Admin: 01/22/19 09:28 Dose: 20 mg Guaifenesin/Phenylephrine HCl (Robitussin Dm) 5 ml PO Q4H PRN PRN Reason: Cough Potassium Chloride/Dextrose/Sod Cl (D5 Ns With 20 Meq Kcl) 1,000 mls @ 50 mls/ hr IV ASDIRECTED [facility] Last Admin: 01/21/19 22:29 Dose: 50 mls/hr Latanoprost (Xalatan 0.005% Oph Soln) 0 ml EYEBOTH BEDTIME [facility] Last Admin: 01/21/19 20:59 Dose: 1 drop Sertraline 25mgOwn (Med) 1 each PO BEDTIME [facility] Last Admin: 01/21/19 20:46 Dose: 1 each Nystatin (Nystop) 1 gm TOP BID [facility] Sodium Chloride (Saline Flush) 10 ml FLUSH ASDIRECTED PRN PRN Reason: Keep Vein Open Verapamil HCl (Calan) 80 mg PO Q8H [facility] Last Admin: 01/22/19 06:07 Dose: 80 mg Discontinued Medications Albuterol/Ipratropium (Duoneb 3.0-0.5 Mg/3 Ml) 3 ml NEB ONETIME ONE Stop: 01/18/19 19:05 Last Admin: 01/18/19 19:09 Dose: 3 ml Aspirin (Aspirin) 325 mg PO BRK [facility] Last Admin: 01/21/19 09:01 Dose: 325 mg Lactated Ringer's (Ringers, Lactated) 1,000 mls @ 500 mls/hr IV .BOLUS ONE Stop: 01/18/19 21:50 Last Infusion: 01/18/19 23:37 Dose: Infused Oseltamivir Phosphate (Tamiflu) 75 mg PO BID [facility]ATH[facility]EL Stop: 01/22/19 22:46 Last Admin: 01/21/19 09:00 Dose: 75 mg Potassium Chloride (Potassium Chloride Solution) 40 meq PO NOW ONE Stop: 01/18/19 19:50 Last Admin: 01/18/19 20:03 Dose: 40 meq Potassium Chloride (Klor-Con 10) 40 meq PO ONETIME ONE Stop: 01/19/19 09:41 Last Admin: 01/19/19 11:07 Dose: 40 meq Potassium Chloride (Klor-Con 10) 40 meq PO ONETIME ONE Stop: 01/20/19 09:31 Last Admin: 01/20/19 09:33 Dose: 40 meq Sodium Chloride (Saline Flush) 10 ml FLUSH ASDIRECTED PRN PRN Reason: Keep Vein Open Last Admin: 01/18/19 19:00 Dose: 10 ml Sodium Chloride (Saline Flush) 10 ml FLUSH ASDIRECTED PRN PRN Reason: Keep Vein Open Sodium Chloride (Saline Flush) 10 ml FLUSH ASDIRECTED PRN PRN Reason: Keep Vein Open Verapamil HCl (Calan) 40 mg PO Q8H [facility] Last Admin: 01/21/19 22:52 Dose: 40 mg Verapamil HCl (Calan) 40 mg PO ONETIME ONE Stop: 01/21/19 22:22 Last Admin: 01/21/19 22:52 Dose: 40 mg - Exam Quality Assessment: Supplemental Oxygen General: Alert, Oriented Neck: Supple Lungs: Decreased Breath Sounds, Wheezing Cardiovascular: Regular Rate, Regular Rhythm GI/Abdominal Exam: Soft, Non-Tender - Problem List Review Problem List Initiated/Reviewed/Updated: Yes - My Orders Last 24 Hours: My Active Orders 01/22/19 10:00 Nystatin [Nystop] 1 gm TOP BID 01/23/19 09:47 BASIC METABOLIC PANEL,BMP [CHEM] Routine - Plan Plan:: Influenza A infection -continue tamiflu -supportive measures: Continue IV fluid hydration, prn tylenol -cxr clear, WBC and lactic acid normal, BP normal. Will hold abx for now. Obtian repeat BMP in AM Hyponatremia, improving -will monitor Na for now -continue IV Fluids BMP in AM Hypokalemia Corrected BMP in AM Hypertension -continue verapamil, home med ANxiety/Depression -continue sertraline Candidiasis Start patient on Nystatin powder BID DVT ppx -SC lovenox FC
[2019-01-22] MEDS: Acetaminophen 325 MG Tab PO PRN ×2 (10:14→17:58)
[2019-01-22] MEDS: Nystatin Topical Powder 30 GM Bottle TOP SCH ×2 (12:14→21:05)
[2019-01-22] MEDS: Dextrose 5%-0.9% NaCl with KCl 1,000 ML IV SCH (18:02)
[2019-01-22] MEDS: SERTRALINE 25 MG PO SCH (21:02)
[2019-01-22] MEDS: Latanoprost 0.005% Ophth Soln 2.5 ML Bottle**OWN MED EYEBOTH SCH (21:05)
[2019-01-23] MEDS: Albuterol/Ipratropium 3.0-0.5 MG/3 ML Neb Soln NEB SCH ×4 (01:03→17:46)
[2019-01-23 06:56] LABS: ANION GAP 16.6; CHLORIDE,CL 92 mmol/L (101-111); SODIUM,NA 129 mmol/L (135-145)
[2019-01-23] MEDS: Acetaminophen 325 MG Tab PO PRN ×2 (08:33→21:14)
[2019-01-23] MEDS: Famotidine 20 MG Tab**OWN MED PO SCH (08:33)
[2019-01-23] MEDS: Clopidogrel 75 MG Tab**OWN MED PO SCH (08:36)
[2019-01-23] MEDS: Enoxaparin 40 MG/0.4 ML Syringe SUBCUT SCH (08:37)
[2019-01-23] MEDS: Aspirin 81 MG Tab.Chew PO SCH (08:37)
[2019-01-23] MEDS: DORZOLAMIDE 2% EYEBOTH SCH ×2 (08:41→21:31)
[2019-01-23] MEDS: Nystatin Topical Powder 30 GM Bottle TOP SCH ×2 (08:42→21:30)
--- NOTE | 2019-01-23 09:41 | PCM.PN ---
- General Info Date of Service: 01/23/19 Admission Dx/Problem (Free Text): Admission Diagnosis/Problem Admission Diagnosis/Problem Influenza due to influenza A virus Subjective Update: 78 yo F admitted with the flu, poor appetite She was seen and examined today. Her overall condition remains the same. She still feels weak with no poor appetite. SOB and fever have resolved. I requested for repeat labs, UA, cxr. Her gram stain from 01/18 was positive gram positive cocci. I started her on Zosyn. Functional Status: Reports: Pain Controlled - Review of Systems General: Reports: No Symptoms HEENT: Reports: No Symptoms Pulmonary: Reports: No Symptoms Cardiovascular: Reports: No Symptoms Gastrointestinal: Reports: No Symptoms Genitourinary: Reports: No Symptoms Musculoskeletal: Reports: No Symptoms Skin: Reports: No Symptoms Neurological: Reports: No Symptoms Psychiatric: Reports: No Symptoms - Patient Data Vitals - Most Recent: Last Vital Signs Temp 98.6 F 01/23/19 04:00 Pulse 84 01/23/19 07:36 Resp 20 01/23/19 00:00 BP 154/61 H 01/23/19 00:00 Pulse Ox 95 01/23/19 01:00 Weight - Most Recent: 148 lb 6 oz I&O - Last 24 Hours: Intake & Output 01/22/19 01/23/19 01/23/19 22:59 06:59 14:59 Intake Total 655 Output Total 250 550 Balance -250 105 Lab Results Last 24 Hours: Laboratory Results - last 24 hr 01/23/19 Range/Units 06:20 Sodium 129 L (135-145) mmol/L Potassium 3.6 (3.6-5.0) mmol/L Chloride 92 L (101-111) mmol/L Carbon Dioxide 24.0 (21.0-31.0) mmol/L Anion Gap 16.6 BUN 5 L (7-18) mg/dL Creatinine 0.5 L (0.6-1.3) mg/dL Est Cr Clr Drug Dosing 65.53 mL/min Estimated GFR (MDRD) > 60 Glucose 109 H (74-105) mg/dL Calcium 8.9 (8.4-10.2) mg/dl [facility] Results Last 24 Hours: Microbiology 01/18/19 19:06 Aerobic Blood Culture - Preliminary Blood - Venous - Lab Draw NO GROWTH AFTER 4 DAYS Anaerobic Blood Culture - Final 01/18/19 19:00 Aerobic Blood Culture - Preliminary Blood - Venous NO GROWTH AFTER 4 DAYS Anaerobic Blood Culture - Preliminary NO GROWTH AFTER 4 DAYS Med Orders - Current: Current Medications Acetaminophen (Tylenol) 650 mg PO Q6H PRN PRN Reason: Fever Last Admin: 01/23/19 08:33 Dose: 650 mg Albuterol (Proventil Neb Soln) 2.5 mg NEB Q4HRRT PRN PRN Reason: Shortness of Breath Last Admin: 01/18/19 23:05 Dose: 2.5 mg Albuterol/Ipratropium (Duoneb 3.0-0.5 Mg/3 Ml) 3 ml NEB Q6HRRT [facility] Last Admin: 01/23/19 07:35 Dose: 3 ml Aspirin (Aspirin) 81 mg PO WITHBREAKFAST [facility] Last Admin: 01/23/19 08:37 Dose: 81 mg Clopidogrel Bisulfate (Plavix) 75 mg PO DAILY [facility] Last Admin: 01/23/19 08:36 Dose: 75 mg Dorzolamide HCl (Trusopt 2% Ophth Soln) 0 ml EYEBOTH BID [facility] Last Admin: 01/23/19 08:41 Dose: 1 drop Enoxaparin Sodium (Lovenox) 40 mg SUBCUT DAILY [facility] Last Admin: 01/23/19 08:37 Dose: 40 mg Famotidine (Pepcid) 20 mg PO DAILY [facility] Last Admin: 01/23/19 08:33 Dose: 20 mg Guaifenesin/Phenylephrine HCl (Robitussin Dm) 5 ml PO Q4H PRN PRN Reason: Cough Potassium Chloride/Dextrose/Sod Cl (D5 Ns With 20 Meq Kcl) 1,000 mls @ 50 mls/ hr IV ASDIRECTED [facility] Last Admin: 01/22/19 18:02 Dose: 50 mls/hr Latanoprost (Xalatan 0.005% Ophth Soln) 0 ml EYEBOTH BEDTIME [facility] Last Admin: 01/22/19 21:05 Dose: 1 drop Sertraline 25mgOwn (Med) 1 each PO BEDTIME [facility] Last Admin: 01/22/19 21:02 Dose: 1 each Nystatin (Nystop) 0 gm TOP BID [facility] Last Admin: 01/23/19 08:42 Dose: 1 applic Sodium Chloride (Saline Flush) 10 ml FLUSH ASDIRECTED PRN PRN Reason: Keep Vein Open Verapamil HCl (Calan) 80 mg PO Q8H [facility] Last Admin: 01/23/19 06:27 Dose: 80 mg Discontinued Medications Albuterol/Ipratropium (Duoneb 3.0-0.5 Mg/3 Ml) 3 ml NEB ONETIME ONE Stop: 01/18/19 19:05 Last Admin: 01/18/19 19:09 Dose: 3 ml Aspirin (Aspirin) 325 mg PO BRK [facility] Last Admin: 01/21/19 09:01 Dose: 325 mg Lactated Ringer's (Ringers, Lactated) 1,000 mls @ 500 mls/hr IV .BOLUS ONE Stop: 01/18/19 21:50 Last Infusion: 01/18/19 23:37 Dose: Infused Oseltamivir Phosphate (Tamiflu) 75 mg PO BID [facility] Stop: 01/22/19 22:46 Last Admin: 01/21/19 09:00 Dose: 75 mg Potassium Chloride (Potassium Chloride Solution) 40 meq PO NOW ONE Stop: 01/18/19 19:50 Last Admin: 01/18/19 20:03 Dose: 40 meq Potassium Chloride (Klor-Con 10) 40 meq PO ONETIME ONE Stop: 01/19/19 09:41 Last Admin: 01/19/19 11:07 Dose: 40 meq Potassium Chloride (Klor-Con 10) 40 meq PO ONETIME ONE Stop: 01/20/19 09:31 Last Admin: 01/20/19 09:33 Dose: 40 meq Sodium Chloride (Saline Flush) 10 ml FLUSH ASDIRECTED PRN PRN Reason: Keep Vein Open Last Admin: 01/18/19 19:00 Dose: 10 ml Sodium Chloride (Saline Flush) 10 ml FLUSH ASDIRECTED PRN PRN Reason: Keep Vein Open Sodium Chloride (Saline Flush) 10 ml FLUSH ASDIRECTED PRN PRN Reason: Keep Vein Open Verapamil HCl (Calan) 40 mg PO Q8H [facility] Last Admin: 01/21/19 22:52 Dose: 40 mg Verapamil HCl (Calan) 40 mg PO ONETIME ONE Stop: 01/21/19 22:22 Last Admin: 01/21/19 22:52 Dose: 40 mg - Exam General: Alert, Oriented HEENT: Pupils Equal, Pupils Reactive, EOMI, Mucous Membr. Moist/[place] Neck: Supple Lungs: Clear to Auscultation, Normal Respiratory Effort Cardiovascular: Regular Rate, Regular Rhythm GI/Abdominal Exam: Normal Bowel Sounds, Soft, Non-Tender, No Organomegaly, No Distention, No Abnormal Bruit, No Mass, Pelvis Stable (Female) Exam: Normal External Exam, Normal Speculum Exam, Normal Bimanual Exam Back Exam: Normal Inspection, Full Range of Motion Extremities: Normal Inspection, Normal Range of Motion, Non-Tender, No Pedal Edema, Normal Capillary Refill Skin: Warm, Dry, Intact Wound/Incisions: Healing Well Neurological: No New Focal Deficit Psy/Mental Status: Alert, Normal Affect, Normal Mood - Problem List & Annotations (1) Weakness generalized SNOMED Code(s): 54608577 Code(s): R53.1 - WEAKNESS Status: Acute Current Visit: Yes - Problem List Review Problem List Initiated/Reviewed/Updated: Yes - Plan Plan:: Influenza A infection -completed course of tamiflu -supportive measures: Continue IV fluid hydration, prn tylenol Hyponatremia, improving -Sodium tablets 1 tid -Continue to monitor -continue IV Fluids -BMP q8h Generalized weakness send for UA INF PT/OT Hypokalemia Resolved Hypertension -continue verapamil, home med ANxiety/Depression -continue sertraline Candidiasis Nystatin powder BID DVT ppx -SC lovenox FC
[2019-01-23] MEDS ORDERED: Piperacillin/Tazobactam 2.25 GM in Sodium Chloride 0.9% 50 ML IV SCH (12:00)
--- NOTE | 2019-01-23 12:14 | CR ---
Clinical history: 78-year-old female "cough". Interpretation: Old healed lateral lower left rib fractures with ipsilateral pleural parenchymal scarring. Chronic shaggy bronchitic pattern and some old middle lobe atelectasis/fibrosis on the right. Normal cardiac silhouette without cephalization of flow, new signs of alveolar edema or dependent pleural fluid accumulation. No new lung mass, hilar lymphadenopathy or focal lobar pneumonia.
[2019-01-23] MEDS: Piperacillin/Tazobactam 3.375 GM in Sodium Chloride 0.9% 100 ML IV SCH ×3 (13:07→23:48)
[2019-01-23] MEDS ORDERED: Ondansetron 4 MG Tab.DIS PO PRN (14:22)
[2019-01-23] MEDS: Dextrose 5%-0.9% NaCl 1,000 ML IV SCH (14:46)
[2019-01-23] MEDS: Sodium Chloride 1 GM Tab PO SCH ×2 (14:49→21:27)
--- NOTE | 2019-01-23 15:01 | PN ---
DATE: 01/21/2019 SUBJECTIVE: Graciela Feliz is a 78-year-old lady who is a resident of [facility]. Last week, we had started her on antibiotics and Tamiflu. A number of [facility] [place] residents had tested positive for flu and been hospitalized. Graciela had mild respiratory symptoms and it was decided to start her on Levaquin and Rocephin at the [facility]. She was also placed on Tamiflu 75 mg twice a day because of the respiratory symptoms and the fact that others had tested positive. She did well for the first 2 days, and then over the weekend, began to have increasing respiratory difficulties. She does have a history of COPD, which has been very well controlled, but this exacerbation of her COPD was likely related to the influenza. She was brought to the Emergency Room, evaluated, and then admitted. In the ER, she was found to be mildly dehydrated and had had poor oral intake over the preceding 24 hours. Admission lab work showed a normal white count. Sodium was 128, potassium 2.8. A single-view chest x-ray showed no acute findings. There was no acute infiltrate, pulmonary venous congestion with the finding of concern. She was initially admitted to observation. Today, we will make her an acute inpatient because she continues on IV antibiotics and fluids. She continues to have hyponatremia. Her usual medications were continued at the time of admission and she was started on Zosyn 3.375 g IV every 6 hours. She is on enoxaparin for VTE prophylaxis. She is on IV fluids with D5 normal saline. Review of her clinical data shows her vital signs to be stable. She has had a low-grade temperature of about 99, but otherwise has not had an elevated temperature since admission. At the beginning of December, we had decreased her verapamil as her blood pressures were well controlled. The verapamil was also being used for chronic headaches and those had completely resolved. Reviewing her hospital blood pressures, however, showed that her systolics had risen again and we increased her verapamil back to 80 mg twice a day. We also have decreased her aspirin to 81 mg daily. OBJECTIVE: General: On exam, she is seated in her recliner. At our last visit in early December, she seemed to be somewhat in decline. She looked tired. Although, she had no complaints, she seemed to have less energy. Since the time of admission, she basically has sat in the recliner and has not been very active. She denies any new concerns or complaints other than feeling of fatigue. She denied chest pain or shortness of breath. She has not been coughing. Vital Signs: Blood pressure was 165/69, pulse 80, respiratory rate 16, oxygen saturation 92% on room air, and temperature 98.9. HEENT: Unremarkable. ENT was clear. Chest: Showed diminished bilateral breath sounds with occasional coarse wheeze. Heart: Showed regular rate and rhythm. Abdomen: Soft and benign. Extremities: Calves were soft and nontender. IMPRESSION: A 78-year-old lady, resident of [facility], hospitalized with increasing shortness of breath and was found to be positive for influenza A. She also has had mild hyponatremia and hypokalemia. The hypokalemia has resolved, but she continues to be somewhat hyponatremic at around 129 to 130. She has had mild hyponatremia in the past, but in the last 2 years, this has ranged from 133 to 134 and not as low as it currently is. Her potassiums have previously been normal. She has never been on fluid restriction. May be that we will need to later add oral sodium chloride, but for now, we will continue the present management. PLAN: We will continue the present management. Her verapamil was increased to 80 mg twice a day for her blood pressure. Aspirin was reduced to 81 mg daily and we will continue on the IV Levaquin. The rate on IV fluids was also reduced, and we will continue to monitor her sodium levels. Potassium has now returned to normal and this morning was 4.0. Graciela currently is in Basic Care and seems to be declining somewhat, which has raised concern for whether or not we will be able to get her back to Basic Care. Today, she was made acute. By the end of the week we will see if she is improving, if not, we may consider admission to [facility] with a trial of Occupational and Physical Therapy to see if we can get her strong enough to get back to Basic Care. This was discussed with case folder and referral was made to both OT, PT, as well as Case Management for discharge planning. [facility] /[id number] DADA
[2019-01-23] MEDS: Albuterol 0.083% 2.5 MG/3 ML Neb Soln NEB PRN (21:12)
[2019-01-23] MEDS: guaiFENesin/Dextromethorphan 100-10 MG/5 ML Soln 5 ML Cup PO PRN (21:12)
[2019-01-23] MEDS: Latanoprost 0.005% Ophth Soln 2.5 ML Bottle**OWN MED EYEBOTH SCH (21:31)
[2019-01-23] MEDS: Sertraline 50 MG Tab PO SCH (21:36)
[2019-01-23] MEDS: SERTRALINE 25 MG PO SCH (22:40)
[2019-01-24] MEDS: Albuterol/Ipratropium 3.0-0.5 MG/3 ML Neb Soln NEB SCH ×4 (01:02→18:13)
[2019-01-24] MEDS: Dextrose 5%-0.9% NaCl 1,000 ML IV SCH ×2 (01:05→11:36)
[2019-01-24] MEDS: Piperacillin/Tazobactam 3.375 GM in Sodium Chloride 0.9% 100 ML IV SCH ×3 (05:39→18:19)
[2019-01-24] MEDS: Aspirin 81 MG Tab.Chew PO SCH (08:04)
[2019-01-24] MEDS: Famotidine 20 MG Tab**OWN MED PO SCH (08:04)
[2019-01-24] MEDS: Multivitamins,Therapeutic Tab PO SCH (08:04)
[2019-01-24] MEDS: Nystatin Topical Powder 30 GM Bottle TOP SCH ×2 (08:05→22:51)
[2019-01-24] MEDS: Clopidogrel 75 MG Tab**OWN MED PO SCH (08:05)
[2019-01-24] MEDS: Sodium Chloride 1 GM Tab PO SCH ×3 (08:05→22:53)
[2019-01-24] MEDS: Enoxaparin 40 MG/0.4 ML Syringe SUBCUT SCH (08:06)
[2019-01-24] MEDS: DORZOLAMIDE 2% EYEBOTH SCH ×2 (08:08→22:56)
[2019-01-24] MEDS ORDERED: Dextrose 5% in Water 1,000 ML IV SCH (11:00)
--- NOTE | 2019-01-24 11:02 | PCM.PN ---
- General Info Date of Service: 01/24/19 Admission Dx/Problem (Free Text): Admission Diagnosis/Problem Admission Diagnosis/Problem Influenza due to influenza A virus Subjective Update: 78 yo F admitted with the flu, poor appetite She was seen and examined today. Her overall condition remains the same. She still feels weak with no poor appetite. SOB and fever have resolved. I requested for repeat labs, UA, cxr. Her gram stain from 01/18 was positive gram positive cocci. I started her on Zosyn. Functional Status: Reports: Pain Controlled - Review of Systems General: Reports: Weakness, Fatigue, Malaise, Appetite HEENT: Reports: No Symptoms Pulmonary: Reports: No Symptoms Cardiovascular: Reports: No Symptoms Gastrointestinal: Reports: No Symptoms Genitourinary: Reports: No Symptoms Musculoskeletal: Reports: No Symptoms Skin: Reports: No Symptoms Neurological: Reports: No Symptoms Psychiatric: Reports: No Symptoms - Patient Data Vitals - Most Recent: Last Vital Signs Temp 99.0 F 01/24/19 07:45 Pulse 72 01/24/19 07:45 Resp 20 01/24/19 07:45 BP 124/80 01/24/19 07:45 Pulse Ox 97 01/24/19 07:45 Weight - Most Recent: 152 lb I&O - Last 24 Hours: Intake & Output 01/23/19 01/24/19 01/24/19 22:59 06:59 14:59 Intake Total 1741 20 Output Total 400 800 Balance -400 941 20 Lab Results Last 24 Hours: Laboratory Results - last 24 hr 01/23/19 01/23/19 01/23/19 Range/Units 06:20 06:20 11:15 WBC 10.5 H (5.0-10.0) 10^3/uL RBC 4.64 (4.2-5.4) 10^6/uL Hgb 12.4 (12.0-16.0) g/dL Hct 36.9 L (37.0-47.0) % MCV 79.5 L (80-100) fL MCH 26.7 L (27.0-34.0) pg MCHC 33.6 (33.0-35.0) g/dL Plt Count 387 (150-450) 10^3/uL Neut % (Auto) 70.2 (42.2-75.2) % Lymph % (Auto) 11.0 L (20.5-50.1) % [place] % (Auto) 15.9 H (2-8) % Eos % (Auto) 2.8 (1.0-3.0) % Baso % (Auto) 0.1 (0.0-1.0) % Phosphorus 4.0 (2.5-4.6) mg/dL Magnesium 1.4 L (1.8-2.5) mg/dL Urine Color Yellow (YELLOW) Urine Appearance Clear (CLEAR) Urine pH 7.0 (5.0-9.0) Ur Specific [place] 1.015 (1.005-1.030) Urine Protein Trace H (NEGATIVE) Urine Glucose (UA) Negative (NEGATIVE) Urine Ketones Negative (NEGATIVE) Urine Occult Blood Negative (NEGATIVE) Urine Nitrite Negative (NEGATIVE) Urine Bilirubin Negative (NEGATIVE) Urine Urobilinogen 1.0 (0.2-1.0) mg/dL Ur Leukocyte Esterase Trace H (NEGATIVE) Urine RBC 0-5 /HPF Urine WBC 0-5 (0-5/HPF) /HPF Ur Epithelial Cells Few /HPF Amorphous Sediment Few (0/HPF) /HPF Urine Bacteria Rare (0-FEW/HPF) /HPF Hyaline Casts Rare H /LPF Urine Mucus Few H /LPF [facility] Results Last 24 Hours: Microbiology 01/23/19 11:15 Urine Culture - Preliminary Urine, Voided NO GROWTH AFTER 1 DAY 01/18/19 19:06 Aerobic Blood Culture - Final Blood - Venous - Lab Draw NO GROWTH AFTER 5 DAYS Anaerobic Blood Culture - Final 01/18/19 19:00 Aerobic Blood Culture - Final Blood - Venous NO GROWTH AFTER 5 DAYS Anaerobic Blood Culture - Final NO GROWTH AFTER 5 DAYS Med Orders - Current: Current Medications Acetaminophen (Tylenol) 650 mg PO Q6H PRN PRN Reason: Fever Last Admin: 01/23/19 21:14 Dose: 650 mg Albuterol (Proventil Neb Soln) 2.5 mg NEB Q4HRRT PRN PRN Reason: Shortness of Breath Last Admin: 01/23/19 21:12 Dose: 2.5 mg Albuterol/Ipratropium (Duoneb 3.0-0.5 Mg/3 Ml) 3 ml NEB Q6HRRT [facility] Last Admin: 01/24/19 07:21 Dose: 3 ml Aspirin (Aspirin) 81 mg PO WITHBREAKFAST [facility] Last Admin: 01/24/19 08:04 Dose: 81 mg Clopidogrel Bisulfate (Plavix) 75 mg PO DAILY [facility] Last Admin: 01/24/19 08:05 Dose: 75 mg Dorzolamide HCl (Trusopt 2% Ophth Soln) 0 ml EYEBOTH BID [facility] Last Admin: 01/24/19 08:08 Dose: 2 drop Enoxaparin Sodium (Lovenox) 40 mg SUBCUT DAILY [facility] Last Admin: 01/24/19 08:06 Dose: Not Given Famotidine (Pepcid) 20 mg PO DAILY [facility] Last Admin: 01/24/19 08:04 Dose: 20 mg Guaifenesin/Phenylephrine HCl (Robitussin Dm) 5 ml PO Q4H PRN PRN Reason: Cough Last Admin: 01/23/19 21:12 Dose: 5 ml Piperacillin Sod/Tazobactam (Sod 3.375 gm/ Sodium Chloride) 100 mls @ 200 mls/ hr IV Q6H [facility] Last Admin: 01/24/19 05:39 Dose: 200 mls/hr Dextrose/Sodium Chloride (Dextrose 5%-Normal Saline) 1,000 mls @ 100 mls/hr IV ASDIRECTED [facility] Last Admin: 01/24/19 01:05 Dose: 100 mls/hr Magnesium Sulfate 2 gm/ Premix 50 mls @ 25 mls/hr IV ONETIME ONE Stop: 01/24/19 13:59 Latanoprost (Xalatan 0.005% Ophth Soln) 0 ml EYEBOTH BEDTIME [facility] Last Admin: 01/23/19 21:31 Dose: 1 drop Multivitamins (Thera) 1 each PO WITHBREAKFAST [facility] Last Admin: 01/24/19 08:04 Dose: 1 each Nystatin (Nystop) 0 gm TOP BID [facility] Last Admin: 01/24/19 08:05 Dose: 2 applic Ondansetron HCl (Zofran Odt) 4 mg PO Q8H PRN PRN Reason: Nausea Last Admin: 01/23/19 17:10 Dose: 4 mg Sertraline HCl (Zoloft) 25 mg PO DAILY@2100 [facility] Last Admin: 01/23/19 21:36 Dose: 25 mg Sodium Chloride (Saline Flush) 10 ml FLUSH ASDIRECTED PRN PRN Reason: Keep Vein Open Sodium Chloride (Sodium Chloride) 1 gm PO TID [facility] Last Admin: 01/24/19 08:05 Dose: 1 gm Verapamil HCl (Calan) 80 mg PO Q8H [facility] Last Admin: 01/24/19 05:40 Dose: 80 mg Discontinued Medications Albuterol/Ipratropium (Duoneb 3.0-0.5 Mg/3 Ml) 3 ml NEB ONETIME ONE Stop: 01/18/19 19:05 Last Admin: 01/18/19 19:09 Dose: 3 ml Aspirin (Aspirin) 325 mg PO BRK [facility] Last Admin: 01/21/19 09:01 Dose: 325 mg Lactated Ringer's (Ringers, Lactated) 1,000 mls @ 500 mls/hr IV .BOLUS ONE Stop: 01/18/19 21:50 Last Infusion: 01/18/19 23:37 Dose: Infused Potassium Chloride/Dextrose/Sod Cl (D5 Ns With 20 Meq Kcl) 1,000 mls @ 50 mls/ hr IV ASDIRECTED [facility] Last Infusion: 01/23/19 14:52 Dose: Infused Piperacillin Sod/Tazobactam (Sod 2.25 gm/ Sodium Chloride) 50 mls @ 100 mls/hr IV Q6HR [facility] Sertraline 25mgOwn (Med) 1 each PO BEDTIME [facility] Last Admin: 01/23/19 22:40 Dose: Not Given Oseltamivir Phosphate (Tamiflu) 75 mg PO BID [facility] Stop: 01/22/19 22:46 Last Admin: 01/21/19 09:00 Dose: 75 mg Potassium Chloride (Potassium Chloride Solution) 40 meq PO NOW ONE Stop: 01/18/19 19:50 Last Admin: 01/18/19 20:03 Dose: 40 meq Potassium Chloride (Klor-Con 10) 40 meq PO ONETIME ONE Stop: 01/19/19 09:41 Last Admin: 01/19/19 11:07 Dose: 40 meq Potassium Chloride (Klor-Con 10) 40 meq PO ONETIME ONE Stop: 01/20/19 09:31 Last Admin: 01/20/19 09:33 Dose: 40 meq Sodium Chloride (Saline Flush) 10 ml FLUSH ASDIRECTED PRN PRN Reason: Keep Vein Open Last Admin: 01/18/19 19:00 Dose: 10 ml Sodium Chloride (Saline Flush) 10 ml FLUSH ASDIRECTED PRN PRN Reason: Keep Vein Open Sodium Chloride (Saline Flush) 10 ml FLUSH ASDIRECTED PRN PRN Reason: Keep Vein Open Verapamil HCl (Calan) 40 mg PO Q8H [facility] Last Admin: 01/21/19 22:52 Dose: 40 mg Verapamil HCl (Calan) 40 mg PO ONETIME ONE Stop: 01/21/19 22:22 Last Admin: 01/21/19 22:52 Dose: 40 mg - Exam Quality Assessment: Supplemental Oxygen, DVT Prophylaxis General: Alert, Oriented, Other (generally weak) HEENT: Pupils Equal, Pupils Reactive, EOMI, Mucous Membr. Moist/[place] Neck: Supple Lungs: Clear to Auscultation, Normal Respiratory Effort Cardiovascular: Regular Rate, Regular Rhythm GI/Abdominal Exam: Normal Bowel Sounds, Soft, Non-Tender, No Organomegaly, No Distention, No Abnormal Bruit, No Mass, Pelvis Stable (Female) Exam: Normal External Exam, Normal Speculum Exam, Normal Bimanual Exam Back Exam: Normal Inspection, Full Range of Motion Extremities: Normal Inspection, Normal Range of Motion, Non-Tender, No Pedal Edema, Normal Capillary Refill Skin: Warm, Dry, Intact Wound/Incisions: Healing Well Neurological: No New Focal Deficit Psy/Mental Status: Alert, Normal Affect, Normal Mood - Problem List & Annotations (1) Weakness generalized SNOMED Code(s): 59069003 Code(s): R53.1 - WEAKNESS Status: Acute Current Visit: Yes - Problem List Review Problem List Initiated/Reviewed/Updated: Yes - My Orders Last 24 Hours: My Active Orders 01/23/19 11:15 CULTURE URINE [RM] Stat 01/23/19 11:30 Dextrose 5%-0.9% NaCl [Dextrose 5%-Normal Saline] 1,000 ml IV ASDIRECTED 01/23/19 12:00 Piperacillin/Tazobactam [Zosyn] 3.375 gm Sodium Chloride 0.9% [Normal Saline] 100 ml IV Q6H 01/23/19 14:00 Sodium Chloride 1 gm PO TID 01/23/19 14:22 Ondansetron [Zofran ODT] 4 mg PO Q8H PRN 01/24/19 08:00 Multivitamins,Therapeutic [Thera] 1 each PO WITHBREAKFAST 01/24/19 10:56 Magnesium Sulfate/Water [Magnesium Sulfate 2 GM in Water 50 ML] 2 gm Premix Bag 1 bag IV ONETIME 01/24/19 11:00 Dextrose 5% in Water @ 50 MLS/HR(1000ml) Dextrose 5% in Water 1,000 ml IV ASDIRECTED Megestrol [Megace 40 MG/ML Susp] 800 mg PO DAILY - Plan Plan:: Influenza A infection -completed course of tamiflu -supportive measures: Continue IV fluid hydration, prn tylenol Hyponatremia, improving -Sodium tablets 1 tid -Continue to monitor -continue IV Fluids -BMP daily Generalized weakness due to low appetite UA negative Megace IVF PT/OT Hypokalemia Resolved Hypertension -continue verapamil, home med Anxiety/Depression -continue sertraline Candidiasis Nystatin powder BID DVT ppx -SC lovenox FC
[2019-01-24] MEDS: Megestrol Susp 40 MG/ML 10 ML UD Cup PO SCH (11:37)
--- NOTE | 2019-01-24 12:02 | PCM.PN ---
- General Info Date of Service: 01/24/19 Admission Dx/Problem (Free Text): Admission Diagnosis/Problem Admission Diagnosis/Problem Influenza due to influenza A virus Subjective Update: 78 yo F admitted with the flu, poor appetite She was seen and examined today. Her overall condition remains the same. She still feels weak with poor appetite. She denies SOB, chest pain. I requested Zofia to help with appetite. She is able to go to wash room with assist of one. I discussed with patient since her weakness and condition is not improving I want to transfer her to [facility] for further evaluation and management but she decline the offer to be transferred. Charge nurse did discussed with her POA including her code status. Patient is now DNI/DNR. Functional Status: Reports: Pain Controlled - Review of Systems General: Reports: No Symptoms HEENT: Reports: No Symptoms Pulmonary: Reports: No Symptoms Cardiovascular: Reports: No Symptoms Gastrointestinal: Reports: No Symptoms Genitourinary: Reports: No Symptoms Musculoskeletal: Reports: No Symptoms Skin: Reports: No Symptoms Neurological: Reports: No Symptoms Psychiatric: Reports: No Symptoms - Patient Data Vitals - Most Recent: Last Vital Signs Temp 98.2 F 01/24/19 11:20 Pulse 70 01/24/19 11:20 Resp 24 H 01/24/19 11:20 BP 149/58 H 01/24/19 11:20 Pulse Ox 94 L 01/24/19 11:20 Weight - Most Recent: 152 lb I&O - Last 24 Hours: Intake & Output 01/23/19 01/24/19 01/24/19 22:59 06:59 14:59 Intake Total 1741 20 Output Total 400 800 Balance -400 941 20 Lab Results Last 24 Hours: Laboratory Results - last 24 hr 01/23/19 Range/Units 11:15 Urine Color Yellow (YELLOW) Urine Appearance Clear (CLEAR) Urine pH 7.0 (5.0-9.0) Ur Specific [place] 1.015 (1.005-1.030) Urine Protein Trace H (NEGATIVE) Urine Glucose (UA) Negative (NEGATIVE) Urine Ketones Negative (NEGATIVE) Urine Occult Blood Negative (NEGATIVE) Urine Nitrite Negative (NEGATIVE) Urine Bilirubin Negative (NEGATIVE) Urine Urobilinogen 1.0 (0.2-1.0) mg/dL Ur Leukocyte Esterase Trace H (NEGATIVE) Urine RBC 0-5 /HPF Urine WBC 0-5 (0-5/HPF) /HPF Ur Epithelial Cells Few /HPF Amorphous Sediment Few (0/HPF) /HPF Urine Bacteria Rare (0-FEW/HPF) /HPF Hyaline Casts Rare H /LPF Urine Mucus Few H /LPF Kendrick Results Last 24 Hours: Microbiology 01/23/19 11:15 Urine Culture - Preliminary Urine, Voided NO GROWTH AFTER 1 DAY 01/18/19 19:06 Aerobic Blood Culture - Final Blood - Venous - Lab Draw NO GROWTH AFTER 5 DAYS Anaerobic Blood Culture - Final 01/18/19 19:00 Aerobic Blood Culture - Final Blood - Venous NO GROWTH AFTER 5 DAYS Anaerobic Blood Culture - Final NO GROWTH AFTER 5 DAYS Med Orders - Current: Current Medications Acetaminophen (Tylenol) 650 mg PO Q6H PRN PRN Reason: Fever Last Admin: 01/23/19 21:14 Dose: 650 mg Albuterol (Proventil Neb Soln) 2.5 mg NEB Q4HRRT PRN PRN Reason: Shortness of Breath Last Admin: 01/23/19 21:12 Dose: 2.5 mg Albuterol/Ipratropium (Duoneb 3.0-0.5 Mg/3 Ml) 3 ml NEB Q6HRRT [facility] Last Admin: 01/24/19 07:21 Dose: 3 ml Aspirin (Aspirin) 81 mg PO WITHBREAKFAST [facility] Last Admin: 01/24/19 08:04 Dose: 81 mg Clopidogrel Bisulfate (Plavix) 75 mg PO DAILY [facility] Last Admin: 01/24/19 08:05 Dose: 75 mg Dorzolamide HCl (Trusopt 2% Ophth Soln) 0 ml EYEBOTH BID [facility] Last Admin: 01/24/19 08:08 Dose: 2 drop Enoxaparin Sodium (Lovenox) 40 mg SUBCUT DAILY [facility] Last Admin: 01/24/19 08:06 Dose: Not Given Famotidine (Pepcid) 20 mg PO DAILY [facility] Last Admin: 01/24/19 08:04 Dose: 20 mg Guaifenesin/Phenylephrine HCl (Robitussin Dm) 5 ml PO Q4H PRN PRN Reason: Cough Last Admin: 01/23/19 21:12 Dose: 5 ml Piperacillin Sod/Tazobactam (Sod 3.375 gm/ Sodium Chloride) 100 mls @ 200 mls/ hr IV Q6H [facility] Last Admin: 01/24/19 05:39 Dose: 200 mls/hr Magnesium Sulfate 2 gm/ Premix 50 mls @ 25 mls/hr IV ONETIME ONE Stop: 01/24/19 14:59 Dextrose/Sodium Chloride (Dextrose 5%-Normal Saline) 1,000 mls @ 50 mls/hr IV ASDIRECTED [facility] Last Admin: 01/24/19 11:36 Dose: 50 mls/hr Latanoprost (Xalatan 0.005% Ophth Soln) 0 ml EYEBOTH BEDTIME [facility] Last Admin: 01/23/19 21:31 Dose: 1 drop Megestrol Acetate (Megace 40 Mg/Ml Susp) 800 mg PO DAILY [facility] Last Admin: 01/24/19 11:37 Dose: 800 mg Multivitamins (Thera) 1 each PO WITHBREAKFAST [facility] Last Admin: 01/24/19 08:04 Dose: 1 each Nystatin (Nystop) 0 gm TOP BID [facility] Last Admin: 01/24/19 08:05 Dose: 2 applic Ondansetron HCl (Zofran Odt) 4 mg PO Q8H PRN PRN Reason: Nausea Last Admin: 01/23/19 17:10 Dose: 4 mg Sertraline HCl (Zoloft) 25 mg PO DAILY@2100 [facility] Last Admin: 01/23/19 21:36 Dose: 25 mg Sodium Chloride (Saline Flush) 10 ml FLUSH ASDIRECTED PRN PRN Reason: Keep Vein Open Sodium Chloride (Sodium Chloride) 1 gm PO TID [facility] Last Admin: 01/24/19 08:05 Dose: 1 gm Verapamil HCl (Calan) 80 mg PO Q8H [facility] Last Admin: 01/24/19 05:40 Dose: 80 mg Discontinued Medications Albuterol/Ipratropium (Duoneb 3.0-0.5 Mg/3 Ml) 3 ml NEB ONETIME ONE Stop: 01/18/19 19:05 Last Admin: 01/18/19 19:09 Dose: 3 ml Aspirin (Aspirin) 325 mg PO BRK [facility] Last Admin: 01/21/19 09:01 Dose: 325 mg Lactated Ringer's (Ringers, Lactated) 1,000 mls @ 500 mls/hr IV .BOLUS ONE Stop: 01/18/19 21:50 Last Infusion: 01/18/19 23:37 Dose: Infused Potassium Chloride/Dextrose/Sod Cl (D5 Ns With 20 Meq Kcl) 1,000 mls @ 50 mls/ hr IV ASDIRECTED [facility] Last Infusion: 01/23/19 14:52 Dose: Infused Piperacillin Sod/Tazobactam (Sod 2.25 gm/ Sodium Chloride) 50 mls @ 100 mls/hr IV Q6HR [facility] Dextrose/Sodium Chloride (Dextrose 5%-Normal Saline) 1,000 mls @ 100 mls/hr IV ASDIRECTED [facility] Last Infusion: 01/24/19 11:54 Dose: Infused Dextrose/Water (Dextrose 5% In Water) 1,000 mls @ 50 mls/hr IV ASDIRECTED [facility] Sertraline 25mgOwn (Med) 1 each PO BEDTIME [facility] Last Admin: 01/23/19 22:40 Dose: Not Given Oseltamivir Phosphate (Tamiflu) 75 mg PO BID [facility] Stop: 01/22/19 22:46 Last Admin: 01/21/19 09:00 Dose: 75 mg Potassium Chloride (Potassium Chloride Solution) 40 meq PO NOW ONE Stop: 01/18/19 19:50 Last Admin: 01/18/19 20:03 Dose: 40 meq Potassium Chloride (Klor-Con 10) 40 meq PO ONETIME ONE Stop: 01/19/19 09:41 Last Admin: 01/19/19 11:07 Dose: 40 meq Potassium Chloride (Klor-Con 10) 40 meq PO ONETIME ONE Stop: 01/20/19 09:31 Last Admin: 01/20/19 09:33 Dose: 40 meq Sodium Chloride (Saline Flush) 10 ml FLUSH ASDIRECTED PRN PRN Reason: Keep Vein Open Last Admin: 01/18/19 19:00 Dose: 10 ml Sodium Chloride (Saline Flush) 10 ml FLUSH ASDIRECTED PRN PRN Reason: Keep Vein Open Sodium Chloride (Saline Flush) 10 ml FLUSH ASDIRECTED PRN PRN Reason: Keep Vein Open Verapamil HCl (Calan) 40 mg PO Q8H [facility] Last Admin: 01/21/19 22:52 Dose: 40 mg Verapamil HCl (Calan) 40 mg PO ONETIME ONE Stop: 01/21/19 22:22 Last Admin: 01/21/19 22:52 Dose: 40 mg - Exam Quality Assessment: Supplemental Oxygen, DVT Prophylaxis General: Alert, Oriented, Other (generalized weakness) HEENT: Pupils Equal, Pupils Reactive, EOMI, Mucous Membr. Moist/[place] Neck: Supple Lungs: Clear to Auscultation, Normal Respiratory Effort Cardiovascular: Regular Rate, Regular Rhythm GI/Abdominal Exam: Normal Bowel Sounds, Soft, Non-Tender, No Organomegaly, No Distention, No Abnormal Bruit, No Mass, Pelvis Stable (Female) Exam: Normal External Exam, Normal Speculum Exam, Normal Bimanual Exam Back Exam: Normal Inspection, Full Range of Motion Extremities: Normal Inspection, Normal Range of Motion, Non-Tender, No Pedal Edema, Normal Capillary Refill Skin: Warm, Dry, Intact Wound/Incisions: Healing Well Neurological: No New Focal Deficit Psy/Mental Status: Alert, Normal Affect, Normal Mood - Problem List & Annotations (1) Weakness generalized SNOMED Code(s): 46387429 Code(s): R53.1 - WEAKNESS Status: Acute Current Visit: Yes - Problem List Review Problem List Initiated/Reviewed/Updated: Yes - My Orders Last 24 Hours: My Active Orders 01/23/19 11:15 CULTURE URINE [RM] Stat 01/23/19 12:00 Piperacillin/Tazobactam [Zosyn] 3.375 gm Sodium Chloride 0.9% [Normal Saline] 100 ml IV Q6H 01/23/19 14:00 Sodium Chloride 1 gm PO TID 01/23/19 14:22 Ondansetron [Zofran ODT] 4 mg PO Q8H PRN 01/24/19 08:00 Multivitamins,Therapeutic [Thera] 1 each PO WITHBREAKFAST 01/24/19 11:04 BASIC METABOLIC PANEL,BMP [CHEM] Routine CBC WITH AUTO DIFF [HEME] Routine 01/24/19 11:15 Dextrose 5%-0.9% NaCl [Dextrose 5%-Normal Saline] 1,000 ml IV ASDIRECTED 01/24/19 11:54 Code Status [Resuscitation Status] Routine 01/24/19 12:00 Megestrol [Megace 40 MG/ML Susp] 800 mg PO DAILY 01/24/19 13:00 Magnesium Sulfate/Water [Magnesium Sulfate 2 GM in Water 50 ML] 2 gm Premix Bag 1 bag IV ONETIME 01/25/19 00:01 BASIC METABOLIC PANEL,BMP [CHEM] DAILY 01/25/19 07:00 CBC W/O DIFF,HEMOGRAM [HEME] DAILY 01/26/19 00:01 BASIC METABOLIC PANEL,BMP [CHEM] DAILY 01/26/19 07:00 CBC W/O DIFF,HEMOGRAM [HEME] DAILY - Plan Plan:: Generalized weakness due to low appetite UA negative will start Megace IVF PT/OT Influenza A infection -completed course of tamiflu -supportive measures: Continue IV fluid hydration, prn tylenol Hyponatremia, improving -Sodium tablets 1 tid -Continue to monitor -continue IV Fluids -BMP daily Hypokalemia Resolved Hypertension -continue verapamil, home med Anxiety/Depression -continue sertraline Candidiasis Nystatin powder BID DVT ppx -SC lovenox Code DNR/DNI
[2019-01-24] MEDS ORDERED: Magnesium Sulfate/Water 2 GM in Premix Bag 1 BAG IV ONE (13:00)
[2019-01-24 13:21] LABS: ANION GAP 13.6; CHLORIDE,CL 96 mmol/L (101-111); SODIUM,NA 132 mmol/L (135-145)
[2019-01-24] MEDS: Potassium Chloride 20 MEQ in Premix Bag 1 BAG IV SCH ×3 (16:15→23:02)
[2019-01-24] MEDS: Acetaminophen 325 MG Tab PO PRN (18:22)
[2019-01-24] MEDS: Sertraline 50 MG Tab PO SCH (23:04)
[2019-01-24] MEDS: Latanoprost 0.005% Ophth Soln 2.5 ML Bottle**OWN MED EYEBOTH SCH (23:08)
[2019-01-25] MEDS: Piperacillin/Tazobactam 3.375 GM in Sodium Chloride 0.9% 100 ML IV SCH ×4 (01:19→17:39)
[2019-01-25] MEDS: Albuterol/Ipratropium 3.0-0.5 MG/3 ML Neb Soln NEB SCH ×4 (01:31→17:39)
[2019-01-25] MEDS: Potassium Chloride 20 MEQ in Premix Bag 1 BAG IV SCH ×3 (01:53→12:09)
[2019-01-25 06:49] LABS: ANION GAP 14.3; CHLORIDE,CL 96 mmol/L (101-111); SODIUM,NA 131 mmol/L (135-145)
[2019-01-25] MEDS: Famotidine 20 MG Tab**OWN MED PO SCH (08:57)
[2019-01-25] MEDS: Multivitamins,Therapeutic Tab PO SCH (08:57)
[2019-01-25] MEDS: Nystatin Topical Powder 30 GM Bottle TOP SCH ×2 (08:57→20:33)
[2019-01-25] MEDS: Clopidogrel 75 MG Tab**OWN MED PO SCH (08:57)
[2019-01-25] MEDS: Enoxaparin 40 MG/0.4 ML Syringe SUBCUT SCH (08:57)
[2019-01-25] MEDS: Aspirin 81 MG Tab.Chew PO SCH (08:57)
[2019-01-25] MEDS: Sodium Chloride 1 GM Tab PO SCH ×4 (08:57→20:18)
[2019-01-25] MEDS: Megestrol Susp 40 MG/ML 10 ML UD Cup PO SCH (08:57)
[2019-01-25] MEDS: DORZOLAMIDE 2% EYEBOTH SCH ×2 (08:58→20:26)
[2019-01-25] MEDS: Dextrose 5%-0.9% NaCl 1,000 ML IV SCH (10:09)
--- NOTE | 2019-01-25 10:55 | PCM.PN ---
- General Info Date of Service: 01/25/19 Admission Dx/Problem (Free Text): Admission Diagnosis/Problem Admission Diagnosis/Problem Influenza due to influenza A virus Subjective Update: 78 yo F admitted with the flu, poor appetite. She completed a course of Tamiflu. She was seen and examined today. Her overall condition is improving. Patient was able tolerated the Jello. She appears lively this morning. Functional Status: Reports: Pain Controlled - Review of Systems General: Reports: Weakness HEENT: Reports: No Symptoms Pulmonary: Reports: No Symptoms Cardiovascular: Reports: No Symptoms Gastrointestinal: Reports: No Symptoms Genitourinary: Reports: No Symptoms Musculoskeletal: Reports: No Symptoms Skin: Reports: No Symptoms Neurological: Reports: No Symptoms Psychiatric: Reports: No Symptoms - Patient Data Vitals - Most Recent: Last Vital Signs Temp 98.3 F 01/25/19 08:13 Pulse 72 01/25/19 08:13 Resp 20 01/25/19 08:13 BP 143/61 H 01/25/19 08:13 Pulse Ox 98 01/25/19 08:13 Weight - Most Recent: 150 lb 14.4 oz I&O - Last 24 Hours: Intake & Output 01/24/19 01/25/19 01/25/19 22:59 06:59 14:59 Intake Total 084 125 3061 Output Total 600 1600 300 Balance -350 -797 700 Lab Results Last 24 Hours: Laboratory Results - last 24 hr 01/24/19 01/24/19 01/25/19 Range/Units 12:47 12:47 06:20 WBC 7.9 7.7 (5.0-10.0) 10^3/uL RBC 3.96 L 4.25 (4.2-5.4) 10^6/uL Hgb 10.6 L D 11.3 L (12.0-16.0) g/dL Hct 31.9 L 34.2 L (37.0-47.0) % MCV 80.6 80.5 (80-100) fL MCH 26.8 L 26.6 L (27.0-34.0) pg MCHC 33.2 33.0 (33.0-35.0) g/dL Plt Count 349 357 (150-450) 10^3/uL Neut % (Auto) 66.1 63.9 (42.2-75.2) % Lymph % (Auto) 11.2 L 15.6 L (20.5-50.1) % [place] % (Auto) 18.9 H 16.1 H (2-8) % Eos % (Auto) 3.7 H 4.3 H (1.0-3.0) % Baso % (Auto) 0.1 0.1 (0.0-1.0) % Add Manual Diff Yes Neutrophils % (Manual) 64 (42-75) % Band Neutrophils % 4 % Lymphocytes % (Manual) 9 L (20-50) % Monocytes % (Manual) 19 H (2-8) % Eosinophils % (Manual) 4 H (1-3) % Sodium 132 L (135-145) mmol/L Potassium 2.6 L (3.6-5.0) mmol/L Chloride 96 L (101-111) mmol/L Carbon Dioxide 25.0 (21.0-31.0) mmol/L Anion Gap 13.6 BUN 5 L (7-18) mg/dL Creatinine 0.5 L (0.6-1.3) mg/dL Est Cr Clr Drug Dosing 65.53 mL/min Estimated GFR (MDRD) > 60 Glucose 102 (74-105) mg/dL Calcium 8.3 L (8.4-10.2) mg/dl Phosphorus (2.5-4.6) mg/dL Magnesium (1.8-2.5) mg/dL 01/25/19 Range/Units 06:20 WBC (5.0-10.0) 10^3/uL RBC (4.2-5.4) 10^6/uL Hgb (12.0-16.0) g/dL Hct (37.0-47.0) % MCV (80-100) fL MCH (27.0-34.0) pg MCHC (33.0-35.0) g/dL Plt Count (150-450) 10^3/uL Neut % (Auto) (42.2-75.2) % Lymph % (Auto) (20.5-50.1) % [place] % (Auto) (2-8) % Eos % (Auto) (1.0-3.0) % Baso % (Auto) (0.0-1.0) % Add Manual Diff Neutrophils % (Manual) (42-75) % Band Neutrophils % % Lymphocytes % (Manual) (20-50) % Monocytes % (Manual) (2-8) % Eosinophils % (Manual) (1-3) % Sodium 131 L (135-145) mmol/L Potassium 3.3 L (3.6-5.0) mmol/L Chloride 96 L (101-111) mmol/L Carbon Dioxide 24.0 (21.0-31.0) mmol/L Anion Gap 14.3 BUN 3 L (7-18) mg/dL Creatinine 0.5 L (0.6-1.3) mg/dL Est Cr Clr Drug Dosing 65.53 mL/min Estimated GFR (MDRD) > 60 Glucose 102 (74-105) mg/dL Calcium 8.7 (8.4-10.2) mg/dl Phosphorus 2.7 (2.5-4.6) mg/dL Magnesium 1.8 (1.8-2.5) mg/dL Kendrick Results Last 24 Hours: Microbiology 01/23/19 11:15 Urine Culture - Final Urine, Voided MIXED ANNY SUGGESTIVE OF CONTAMINATION. Med Orders - Current: Current Medications Acetaminophen (Tylenol) 650 mg PO Q6H PRN PRN Reason: Fever Last Admin: 01/24/19 18:22 Dose: 650 mg Albuterol (Proventil Neb Soln) 2.5 mg NEB Q4HRRT PRN PRN Reason: Shortness of Breath Last Admin: 01/23/19 21:12 Dose: 2.5 mg Albuterol/Ipratropium (Duoneb 3.0-0.5 Mg/3 Ml) 3 ml NEB Q6HRRT REPLACED BY [facility] Last Admin: 01/25/19 07:34 Dose: 3 ml Aspirin (Aspirin) 81 mg PO WITHBREAKFAST REPLACED BY [facility] Last Admin: 01/25/19 08:57 Dose: 81 mg Clopidogrel Bisulfate (Plavix) 75 mg PO DAILY [facility]PL[facility] BY [facility] Last Admin: 01/25/19 08:57 Dose: 75 mg Dorzolamide HCl (Trusopt 2% Ophth Soln) 0 ml EYEBOTH BID REPLACED BY [facility] Last Admin: 01/25/19 08:58 Dose: 1 drop Enoxaparin Sodium (Lovenox) 40 mg SUBCUT DAILY [facility]PL[facility] BY [facility] Last Admin: 01/25/19 08:57 Dose: 40 mg Famotidine (Pepcid) 20 mg PO DAILY REPL[facility] BY [facility] Last Admin: 01/25/19 08:57 Dose: 20 mg Guaifenesin/Phenylephrine HCl (Robitussin Dm) 5 ml PO Q4H PRN PRN Reason: Cough Last Admin: 01/23/19 21:12 Dose: 5 ml Piperacillin Sod/Tazobactam (Sod 3.375 gm/ Sodium Chloride) 100 mls @ 200 mls/ hr IV Q6H REPLACED BY [facility] Last Infusion: 01/25/19 06:43 Dose: Infused Dextrose/Sodium Chloride (Dextrose 5%-Normal Saline) 1,000 mls @ 50 mls/hr IV ASDIRECTED REPLACED BY [facility] Last Admin: 01/25/19 10:09 Dose: 50 mls/hr Potassium Chloride 20 meq/ (Premix) 100 mls @ 50 mls/hr IV Q2H REPLACED BY [facility] Stop: 01/25/19 13:59 Last Admin: 01/25/19 10:17 Dose: 50 mls/hr Latanoprost (Xalatan 0.005% Ophth Soln) 0 ml EYEBOTH BEDTIME REPLACED BY [facility] Last Admin: 01/24/19 23:08 Dose: 1 drop Megestrol Acetate (Megace 40 Mg/Ml Susp) 800 mg PO DAILY REPLACED BY [facility] Last Admin: 01/25/19 08:57 Dose: 800 mg Multivitamins (Thera) 1 each PO WITHBREAKFAST REPLACED BY [facility] Last Admin: 01/25/19 08:57 Dose: 1 each Nystatin (Nystop) 0 gm TOP BID REPLACED BY [facility] Last Admin: 01/25/19 08:57 Dose: 1 applic Ondansetron HCl (Zofran Odt) 4 mg PO Q8H PRN PRN Reason: Nausea Last Admin: 01/23/19 17:10 Dose: 4 mg Sertraline HCl (Zoloft) 25 mg PO DAILY@2100 REPLACED BY [facility] Last Admin: 01/24/19 23:04 Dose: 25 mg Sodium Chloride (Saline Flush) 10 ml FLUSH ASDIRECTED PRN PRN Reason: Keep Vein Open Sodium Chloride (Sodium Chloride) 1 gm PO TID REPLACED BY [facility] Last Admin: 01/25/19 08:57 Dose: 1 gm Verapamil HCl (Calan) 80 mg PO Q8H REPLACED BY [facility] Last Admin: 01/25/19 06:16 Dose: 80 mg Discontinued Medications Albuterol/Ipratropium (Duoneb 3.0-0.5 Mg/3 Ml) 3 ml NEB ONETIME ONE Stop: 01/18/19 19:05 Last Admin: 01/18/19 19:09 Dose: 3 ml Aspirin (Aspirin) 325 mg PO BRK REPLACED BY [facility] Last Admin: 01/21/19 09:01 Dose: 325 mg Lactated Ringer's (Ringers, Lactated) 1,000 mls @ 500 mls/hr IV .BOLUS ONE Stop: 01/18/19 21:50 Last Infusion: 01/18/19 23:37 Dose: Infused Potassium Chloride/Dextrose/Sod Cl (D5 Ns With 20 Meq Kcl) 1,000 mls @ 50 mls/ hr IV ASDIRECTED [facility]ATH[facility]EL Last Infusion: 01/23/19 14:52 Dose: Infused Piperacillin Sod/Tazobactam (Sod 2.25 gm/ Sodium Chloride) 50 mls @ 100 mls/hr IV Q6HR [facility]ATH[facility]EL Dextrose/Sodium Chloride (Dextrose 5%-Normal Saline) 1,000 mls @ 100 mls/hr IV ASDIRECTED REPLACED BY [facility] Last Infusion: 01/24/19 11:54 Dose: Infused Magnesium Sulfate 2 gm/ Premix 50 mls @ 25 mls/hr IV ONETIME ONE Stop: 01/24/19 14:59 Last Infusion: 01/24/19 16:02 Dose: Infused Dextrose/Water (Dextrose 5% In Water) 1,000 mls @ 50 mls/hr IV ASDIRECTED NATHANIEL Potassium Chloride 20 meq/ (Premix) 100 mls @ 50 mls/hr IV Q3H [facility] Stop: 01/25/19 02:59 Last Infusion: 01/25/19 04:43 Dose: Infused Sertraline 25mgOwn (Med) 1 each PO BEDTIME REPLACED BY [facility] Last Admin: 01/23/19 22:40 Dose: Not Given Oseltamivir Phosphate (Tamiflu) 75 mg PO BID [facility]EL Stop: 01/22/19 22:46 Last Admin: 01/21/19 09:00 Dose: 75 mg Potassium Chloride (Potassium Chloride Solution) 40 meq PO NOW ONE Stop: 01/18/19 19:50 Last Admin: 01/18/19 20:03 Dose: 40 meq Potassium Chloride (Klor-Con 10) 40 meq PO ONETIME ONE Stop: 01/19/19 09:41 Last Admin: 01/19/19 11:07 Dose: 40 meq Potassium Chloride (Klor-Con 10) 40 meq PO ONETIME ONE Stop: 01/20/19 09:31 Last Admin: 01/20/19 09:33 Dose: 40 meq Sodium Chloride (Saline Flush) 10 ml FLUSH ASDIRECTED PRN PRN Reason: Keep Vein Open Last Admin: 01/18/19 19:00 Dose: 10 ml Sodium Chloride (Saline Flush) 10 ml FLUSH ASDIRECTED PRN PRN Reason: Keep Vein Open Sodium Chloride (Saline Flush) 10 ml FLUSH ASDIRECTED PRN PRN Reason: Keep Vein Open Verapamil HCl (Calan) 40 mg PO Q8H [facility]ATH[facility]EL Last Admin: 01/21/19 22:52 Dose: 40 mg Verapamil HCl (Calan) 40 mg PO ONETIME ONE Stop: 01/21/19 22:22 Last Admin: 01/21/19 22:52 Dose: 40 mg - Exam Quality Assessment: Supplemental Oxygen, DVT Prophylaxis General: Alert, Oriented HEENT: Pupils Equal, Pupils Reactive, EOMI, Mucous Membr. Moist/[place] Neck: Supple Lungs: Clear to Auscultation, Normal Respiratory Effort Cardiovascular: Regular Rate, Regular Rhythm GI/Abdominal Exam: Normal Bowel Sounds, Soft, Non-Tender, No Organomegaly, No Distention, No Abnormal Bruit, No Mass, Pelvis Stable (Female) Exam: Normal External Exam, Normal Speculum Exam, Normal Bimanual Exam Back Exam: Normal Inspection, Full Range of Motion Extremities: Normal Inspection, Normal Range of Motion, Non-Tender, No Pedal Edema, Normal Capillary Refill Skin: Warm, Dry, Intact Wound/Incisions: Healing Well Neurological: No New Focal Deficit Psy/Mental Status: Alert, Normal Affect, Normal Mood - Problem List & Annotations (1) Weakness generalized SNOMED Code(s): 57846314 Code(s): R53.1 - WEAKNESS Status: Acute Current Visit: Yes - Problem List Review Problem List Initiated/Reviewed/Updated: Yes - My Orders Last 24 Hours: My Active Orders 01/24/19 11:15 Dextrose 5%-0.9% NaCl [Dextrose 5%-Normal Saline] 1,000 ml IV ASDIRECTED 01/24/19 11:54 Code Status [Resuscitation Status] Routine 01/24/19 12:00 Megestrol [Megace 40 MG/ML Susp] 800 mg PO DAILY 01/25/19 10:00 Potassium Chloride [KCL 20 MEQ in Water 100 ML] 20 meq Premix Bag 1 bag IV Q2H 01/26/19 06:00 BASIC METABOLIC PANEL,BMP [CHEM] Routine CBC WITH AUTO DIFF [HEME] Routine - Plan Plan:: Generalized weakness due to low appetite/hypokalemia Now improving Continue Megace Continue to replace KCL IVF PT/OT Influenza A infection -completed course of Tamiflu -supportive measures: Continue IV fluid hydration, prn tylenol Hyponatremia, improving -Sodium tablets 1 tid -Continue to monitor -continue IV Fluids -BMP daily Hypokalemia Unresolved Continue IV replacement Hypertension -continue verapamil, home med Anxiety/Depression -continue sertraline Candidiasis Nystatin powder BID DVT ppx -SC lovenox Code DNR/DNI
[2019-01-25] MEDS: Acetaminophen 325 MG Tab PO PRN (20:14)
[2019-01-25] MEDS: Sertraline 50 MG Tab PO SCH (20:17)
[2019-01-25] MEDS: Latanoprost 0.005% Ophth Soln 2.5 ML Bottle**OWN MED EYEBOTH SCH (20:20)
[2019-01-25] MEDS: guaiFENesin/Dextromethorphan 100-10 MG/5 ML Soln 5 ML Cup PO PRN (20:27)
[2019-01-26 09:27] LABS: SODIUM,NA 130 mmol/L (135-145)
[2019-01-26 09:36] LABS: ANION GAP 14.9; CHLORIDE,CL 96 mmol/L (101-111)
[2019-01-26] MEDS: Enoxaparin 40 MG/0.4 ML Syringe SUBCUT SCH (09:43)
[2019-01-26] MEDS: Aspirin 81 MG Tab.Chew PO SCH (09:43)
[2019-01-26] MEDS: Megestrol Susp 40 MG/ML 10 ML UD Cup PO SCH (09:43)
[2019-01-26] MEDS: Multivitamins,Therapeutic Tab PO SCH (09:43)
[2019-01-26] MEDS: Nystatin Topical Powder 30 GM Bottle TOP SCH ×2 (09:44→20:55)
[2019-01-26] MEDS: Clopidogrel 75 MG Tab**OWN MED PO SCH (09:44)
[2019-01-26] MEDS: Famotidine 20 MG Tab**OWN MED PO SCH (09:44)
[2019-01-26] MEDS: Sodium Chloride 1 GM Tab PO SCH ×3 (09:44→20:48)
[2019-01-26] MEDS: DORZOLAMIDE 2% EYEBOTH SCH ×2 (10:03→20:54)
[2019-01-26] MEDS: Piperacillin/Tazobactam 3.375 GM in Sodium Chloride 0.9% 100 ML IV SCH ×4 (10:34→17:55)
[2019-01-26] MEDS: Albuterol/Ipratropium 3.0-0.5 MG/3 ML Neb Soln NEB SCH ×3 (10:35→18:00)
--- NOTE | 2019-01-26 11:27 | PCM.PN ---
- General Info Date of Service: 01/26/19 Admission Dx/Problem (Free Text): Admission Diagnosis/Problem Admission Diagnosis/Problem Influenza due to influenza A virus Subjective Update: 78 yo F admitted with the flu, poor appetite. She completed a course of Tamiflu. She was seen and examined today. Her overall condition is improving. Her appetite is improving. Functional Status: Reports: Pain Controlled - Review of Systems General: Reports: No Symptoms HEENT: Reports: No Symptoms Pulmonary: Reports: No Symptoms Cardiovascular: Reports: No Symptoms Gastrointestinal: Reports: No Symptoms Genitourinary: Reports: No Symptoms Musculoskeletal: Reports: No Symptoms Skin: Reports: No Symptoms Neurological: Reports: No Symptoms Psychiatric: Reports: No Symptoms - Patient Data Vitals - Most Recent: Last Vital Signs Temp 98.5 F 01/25/19 20:35 Pulse 76 01/25/19 20:35 Resp 20 01/25/19 20:35 BP 125/58 L 01/25/19 20:35 Pulse Ox 95 01/25/19 22:00 Weight - Most Recent: 150 lb 14.4 oz I&O - Last 24 Hours: Intake & Output 01/25/19 01/26/19 01/26/19 22:59 06:59 14:59 Intake Total 607 Output Total 1000 Balance -393 Lab Results Last 24 Hours: Laboratory Results - last 24 hr 01/26/19 01/26/19 Range/Units 06:37 06:37 WBC 7.5 (5.0-10.0) 10^3/uL RBC 4.34 (4.2-5.4) 10^6/uL Hgb 11.6 L (12.0-16.0) g/dL Hct 34.9 L (37.0-47.0) % MCV 80.4 (80-100) fL MCH 26.7 L (27.0-34.0) pg MCHC 33.2 (33.0-35.0) g/dL Plt Count 386 (150-450) 10^3/uL Neut % (Auto) 61.5 (42.2-75.2) % Lymph % (Auto) 17.7 L (20.5-50.1) % [place] % (Auto) 16.1 H (2-8) % Eos % (Auto) 4.6 H (1.0-3.0) % Baso % (Auto) 0.1 (0.0-1.0) % Sodium 130 L (135-145) mmol/L Potassium 2.9 L (3.6-5.0) mmol/L Chloride 96 L (101-111) mmol/L Carbon Dioxide 22.0 (21.0-31.0) mmol/L Anion Gap 14.9 BUN < 5 L (7-18) mg/dL Creatinine 0.5 L (0.6-1.3) mg/dL Est Cr Clr Drug Dosing 65.53 mL/min Estimated GFR (MDRD) > 60 Glucose 91 (74-105) mg/dL Calcium 8.6 (8.4-10.2) mg/dl [place] Results Last 24 Hours: Microbiology 01/23/19 11:15 Urine Culture - Final Urine, Voided MIXED ANNY SUGGESTIVE OF CONTAMINATION. Med Orders - Current: Current Medications Acetaminophen (Tylenol) 650 mg PO Q6H PRN PRN Reason: Fever Last Admin: 01/25/19 20:14 Dose: 650 mg Albuterol (Proventil Neb Soln) 2.5 mg NEB Q4HRRT PRN PRN Reason: Shortness of Breath Last Admin: 01/23/19 21:12 Dose: 2.5 mg Albuterol/Ipratropium (Duoneb 3.0-0.5 Mg/3 Ml) 3 ml NEB Q6HRRT [facility] Last Admin: 01/26/19 10:35 Dose: Not Given Aspirin (Aspirin) 81 mg PO WITHBREAKFAST [facility] Last Admin: 01/26/19 09:43 Dose: 81 mg Clopidogrel Bisulfate (Plavix) 75 mg PO DAILY [facility] Last Admin: 01/26/19 09:44 Dose: 75 mg Dorzolamide HCl (Trusopt 2% Ophth Soln) 0 ml EYEBOTH BID [facility] Last Admin: 01/26/19 10:03 Dose: 1 drop Enoxaparin Sodium (Lovenox) 40 mg SUBCUT DAILY [facility] Last Admin: 01/26/19 09:43 Dose: 40 mg Famotidine (Pepcid) 20 mg PO DAILY [facility] Last Admin: 01/26/19 09:44 Dose: 20 mg Guaifenesin/Phenylephrine HCl (Robitussin Dm) 5 ml PO Q4H PRN PRN Reason: Cough Last Admin: 01/25/19 20:27 Dose: 5 ml Piperacillin Sod/Tazobactam (Sod 3.375 gm/ Sodium Chloride) 100 mls @ 200 mls/ hr IV Q6H [facility] Last Admin: 01/26/19 10:34 Dose: Not Given Dextrose/Sodium Chloride (Dextrose 5%-Normal Saline) 1,000 mls @ 50 mls/hr IV ASDIRECTED [facility] Last Admin: 01/25/19 10:09 Dose: 50 mls/hr Potassium Chloride 20 meq/ (Premix) 100 mls @ 50 mls/hr IV Q2H [facility] Stop: 01/26/19 14:44 Latanoprost (Xalatan 0.005% Ophth Soln) 0 ml EYEBOTH BEDTIME [facility] Last Admin: 01/25/19 20:20 Dose: 1 drop Megestrol Acetate (Megace 40 Mg/Ml Susp) 800 mg PO DAILY [facility] Last Admin: 01/26/19 09:43 Dose: 800 mg Multivitamins (Thera) 1 each PO WITHBREAKFAST [facility] Last Admin: 01/26/19 09:43 Dose: 1 each Nystatin (Nystop) 0 gm TOP BID [facility] Last Admin: 01/26/19 09:44 Dose: 1 applic Ondansetron HCl (Zofran Odt) 4 mg PO Q8H PRN PRN Reason: Nausea Last Admin: 01/23/19 17:10 Dose: 4 mg Sertraline HCl (Zoloft) 25 mg PO DAILY@2100 [facility] Last Admin: 01/25/19 20:17 Dose: 25 mg Sodium Chloride (Saline Flush) 10 ml FLUSH ASDIRECTED PRN PRN Reason: Keep Vein Open Sodium Chloride (Sodium Chloride) 1 gm PO TID [facility] Last Admin: 01/26/19 09:44 Dose: 1 gm Verapamil HCl (Calan) 80 mg PO Q8H [facility] Last Admin: 01/26/19 10:36 Dose: Not Given Discontinued Medications Albuterol/Ipratropium (Duoneb 3.0-0.5 Mg/3 Ml) 3 ml NEB ONETIME ONE Stop: 01/18/19 19:05 Last Admin: 01/18/19 19:09 Dose: 3 ml Aspirin (Aspirin) 325 mg PO BRK [facility] Last Admin: 01/21/19 09:01 Dose: 325 mg Lactated Ringer's (Ringers, Lactated) 1,000 mls @ 500 mls/hr IV .BOLUS ONE Stop: 01/18/19 21:50 Last Infusion: 01/18/19 23:37 Dose: Infused Potassium Chloride/Dextrose/Sod Cl (D5 Ns With 20 Meq Kcl) 1,000 mls @ 50 mls/ hr IV ASDIRECTED [facility] Last Infusion: 01/23/19 14:52 Dose: Infused Piperacillin Sod/Tazobactam (Sod 2.25 gm/ Sodium Chloride) 50 mls @ 100 mls/hr IV Q6HR [facility] Dextrose/Sodium Chloride (Dextrose 5%-Normal Saline) 1,000 mls @ 100 mls/hr IV ASDIRECTED [facility] Last Infusion: 01/24/19 11:54 Dose: Infused Magnesium Sulfate 2 gm/ Premix 50 mls @ 25 mls/hr IV ONETIME ONE Stop: 01/24/19 14:59 Last Infusion: 01/24/19 16:02 Dose: Infused Dextrose/Water (Dextrose 5% In Water) 1,000 mls @ 50 mls/hr IV ASDIRECTED [facility] Potassium Chloride 20 meq/ (Premix) 100 mls @ 50 mls/hr IV Q3H [facility] Stop: 01/25/19 02:59 Last Infusion: 01/25/19 04:43 Dose: Infused Potassium Chloride 20 meq/ (Premix) 100 mls @ 50 mls/hr IV Q2H [facility] Stop: 01/25/19 13:59 Last Infusion: 01/25/19 14:28 Dose: Infused Sertraline 25mgOwn (Med) 1 each PO BEDTIME [facility] Last Admin: 01/23/19 22:40 Dose: Not Given Oseltamivir Phosphate (Tamiflu) 75 mg PO BID [facility] Stop: 01/22/19 22:46 Last Admin: 01/21/19 09:00 Dose: 75 mg Potassium Chloride (Potassium Chloride Solution) 40 meq PO NOW ONE Stop: 01/18/19 19:50 Last Admin: 01/18/19 20:03 Dose: 40 meq Potassium Chloride (Klor-Con 10) 40 meq PO ONETIME ONE Stop: 01/19/19 09:41 Last Admin: 01/19/19 11:07 Dose: 40 meq Potassium Chloride (Klor-Con 10) 40 meq PO ONETIME ONE Stop: 01/20/19 09:31 Last Admin: 01/20/19 09:33 Dose: 40 meq Sodium Chloride (Saline Flush) 10 ml FLUSH ASDIRECTED PRN PRN Reason: Keep Vein Open Last Admin: 01/18/19 19:00 Dose: 10 ml Sodium Chloride (Saline Flush) 10 ml FLUSH ASDIRECTED PRN PRN Reason: Keep Vein Open Sodium Chloride (Saline Flush) 10 ml FLUSH ASDIRECTED PRN PRN Reason: Keep Vein Open Verapamil HCl (Calan) 40 mg PO Q8H [facility] Last Admin: 01/21/19 22:52 Dose: 40 mg Verapamil HCl (Calan) 40 mg PO ONETIME ONE Stop: 01/21/19 22:22 Last Admin: 01/21/19 22:52 Dose: 40 mg - Exam Quality Assessment: Supplemental Oxygen, DVT Prophylaxis General: Alert, Oriented HEENT: Pupils Equal, Pupils Reactive, EOMI, Mucous Membr. Moist/[place] Neck: Supple Lungs: Clear to Auscultation, Normal Respiratory Effort Cardiovascular: Regular Rate, Regular Rhythm GI/Abdominal Exam: Normal Bowel Sounds, Soft, Non-Tender, No Organomegaly, No Distention, No Abnormal Bruit, No Mass, Pelvis Stable (Female) Exam: Normal External Exam, Normal Speculum Exam, Normal Bimanual Exam Back Exam: Normal Inspection, Full Range of Motion Extremities: Normal Inspection, Normal Range of Motion, Non-Tender, No Pedal Edema, Normal Capillary Refill Skin: Warm, Dry, Intact Wound/Incisions: Healing Well Neurological: No New Focal Deficit Psy/Mental Status: Alert, Normal Affect, Normal Mood - Problem List & Annotations (1) Weakness generalized SNOMED Code(s): 56783376 Code(s): R53.1 - WEAKNESS Status: Acute Current Visit: Yes - Problem List Review Problem List Initiated/Reviewed/Updated: Yes - My Orders Last 24 Hours: My Active Orders 01/26/19 10:45 Potassium Chloride [KCL 20 MEQ in Water 100 ML] 20 meq Premix Bag 1 bag IV Q2H - Plan Plan:: Generalized weakness due to low appetite/hypokalemia Now improving Continue Megace Continue to replace KCL IVF PT/OT Influenza A infection -completed course of Tamiflu -supportive measures: Continue IV fluid hydration, prn tylenol Hyponatremia, improving -Sodium tablets 1 tid -Continue to monitor -continue IVF N/S -BMP daily Hypokalemia Unresolved Continue IV replacement Hypertension -continue verapamil, home med Anxiety/Depression -continue sertraline Candidiasis Nystatin powder BID DVT ppx -SC lovenox Code DNR/DNI
[2019-01-26] MEDS: Potassium Chloride 20 MEQ in Premix Bag 1 BAG IV SCH ×2 (12:20→14:37)
[2019-01-26] MEDS: Dextrose 5%-0.9% NaCl with KCl 1,000 ML IV SCH (16:50)
[2019-01-26] MEDS: Latanoprost 0.005% Ophth Soln 2.5 ML Bottle**OWN MED EYEBOTH SCH (20:46)
[2019-01-26] MEDS: Loratadine 10 MG Tab PO SCH (20:50)
[2019-01-26] MEDS: Fluticasone Propionate Nasal Spray 16 GM Bottle NASBOTH SCH (20:52)
[2019-01-26] MEDS: Sertraline 50 MG Tab PO SCH (20:54)
[2019-01-27] MEDS: Piperacillin/Tazobactam 3.375 GM in Sodium Chloride 0.9% 100 ML IV SCH ×3 (00:12→13:04)
[2019-01-27] MEDS: Albuterol/Ipratropium 3.0-0.5 MG/3 ML Neb Soln NEB SCH ×4 (00:17→18:31)
[2019-01-27] MEDS: Multivitamins,Therapeutic Tab PO SCH (09:11)
[2019-01-27] MEDS: Nystatin Topical Powder 30 GM Bottle TOP SCH ×2 (09:11→21:12)
[2019-01-27] MEDS: Famotidine 20 MG Tab**OWN MED PO SCH (09:11)
[2019-01-27] MEDS: Megestrol Susp 40 MG/ML 10 ML UD Cup PO SCH (09:11)
[2019-01-27] MEDS: Enoxaparin 40 MG/0.4 ML Syringe SUBCUT SCH (09:11)
[2019-01-27] MEDS: Aspirin 81 MG Tab.Chew PO SCH (09:11)
[2019-01-27] MEDS: Sodium Chloride 1 GM Tab PO SCH ×3 (09:11→21:10)
[2019-01-27] MEDS: Clopidogrel 75 MG Tab**OWN MED PO SCH (09:11)
[2019-01-27] MEDS: Fluticasone Propionate Nasal Spray 16 GM Bottle NASBOTH SCH ×2 (09:11→21:12)
[2019-01-27] MEDS: DORZOLAMIDE 2% EYEBOTH SCH ×2 (09:12→21:11)
[2019-01-27 11:02] LABS: ANION GAP 11.2; CHLORIDE,CL 101 mmol/L (101-111); SODIUM,NA 131 mmol/L (135-145)
--- NOTE | 2019-01-27 13:18 | PCM.PN ---
- General Info Date of Service: 01/27/19 Admission Dx/Problem (Free Text): Admission Diagnosis/Problem Admission Diagnosis/Problem Influenza due to influenza A virus Subjective Update: 78 yo F admitted with the flu, poor appetite. She completed a course of Tamiflu. She was seen and examined today. Her overall condition is improving but still feels weak. Her appetite is also improving. Functional Status: Reports: Pain Controlled - Review of Systems General: Reports: No Symptoms HEENT: Reports: No Symptoms Pulmonary: Reports: No Symptoms Cardiovascular: Reports: No Symptoms Gastrointestinal: Reports: No Symptoms Genitourinary: Reports: No Symptoms Musculoskeletal: Reports: No Symptoms Skin: Reports: No Symptoms Neurological: Reports: No Symptoms Psychiatric: Reports: No Symptoms - Patient Data Vitals - Most Recent: Last Vital Signs Temp 98.2 F 01/27/19 12:31 Pulse 81 01/27/19 12:31 Resp 18 01/27/19 12:31 BP 148/68 H 01/27/19 12:31 Pulse Ox 98 01/27/19 12:31 Weight - Most Recent: 149 lb 12.8 oz I&O - Last 24 Hours: Intake & Output 01/26/19 01/27/19 01/27/19 22:59 06:59 14:59 Intake Total 150 1113 100 Output Total 200 Balance -50 1113 100 Lab Results Last 24 Hours: Laboratory Results - last 24 hr 01/26/19 01/27/19 01/27/19 Range/Units 18:25 10:22 10:22 WBC 8.0 (5.0-10.0) 10^3/uL RBC 4.41 (4.2-5.4) 10^6/uL Hgb 11.7 L (12.0-16.0) g/dL Hct 35.3 L (37.0-47.0) % MCV 80.0 (80-100) fL MCH 26.5 L (27.0-34.0) pg MCHC 33.1 (33.0-35.0) g/dL Plt Count 391 (150-450) 10^3/uL Neut % (Auto) 63.3 (42.2-75.2) % Lymph % (Auto) 18.6 L (20.5-50.1) % [place] % (Auto) 14.4 H (2-8) % Eos % (Auto) 3.6 H (1.0-3.0) % Baso % (Auto) 0.1 (0.0-1.0) % Sodium 131 L (135-145) mmol/L Potassium 3.5 L 3.2 L (3.6-5.0) mmol/L Chloride 101 (101-111) mmol/L Carbon Dioxide 22.0 (21.0-31.0) mmol/L Anion Gap 11.2 BUN < 5 L (7-18) mg/dL Creatinine 0.6 (0.6-1.3) mg/dL Est Cr Clr Drug Dosing 54.61 mL/min Estimated GFR (MDRD) > 60 Glucose 94 (74-105) mg/dL Calcium 8.8 (8.4-10.2) mg/dl Med Orders - Current: Current Medications Acetaminophen (Tylenol) 650 mg PO Q6H PRN PRN Reason: Fever Last Admin: 01/25/19 20:14 Dose: 650 mg Albuterol (Proventil Neb Soln) 2.5 mg NEB Q4HRRT PRN PRN Reason: Shortness of Breath Last Admin: 01/23/19 21:12 Dose: 2.5 mg Albuterol/Ipratropium (Duoneb 3.0-0.5 Mg/3 Ml) 3 ml NEB Q6HRRT [facility] Last Admin: 01/27/19 08:47 Dose: Not Given Aspirin (Aspirin) 81 mg PO WITHBREAKFAST [facility] Last Admin: 01/27/19 09:11 Dose: 81 mg Clopidogrel Bisulfate (Plavix) 75 mg PO DAILY [facility] Last Admin: 01/27/19 09:11 Dose: 75 mg Dorzolamide HCl (Trusopt 2% Ophth Soln) 0 ml EYEBOTH BID [facility] Last Admin: 01/27/19 09:12 Dose: 1 drop Enoxaparin Sodium (Lovenox) 40 mg SUBCUT DAILY [facility] Last Admin: 01/27/19 09:11 Dose: 40 mg Famotidine (Pepcid) 20 mg PO DAILY [facility] Last Admin: 01/27/19 09:11 Dose: 20 mg Fluticasone Propionate (Flonase) 0 gm NASBOTH BID [facility] Last Admin: 01/27/19 09:11 Dose: 1 spray Guaifenesin/Phenylephrine HCl (Robitussin Dm) 5 ml PO Q4H PRN PRN Reason: Cough Last Admin: 01/25/19 20:27 Dose: 5 ml Potassium Chloride/Dextrose/Sod Cl (D5 Ns With 20 Meq Kcl) 1,000 mls @ 50 mls/ hr IV ASDIRECTED [facility] Last Admin: 01/26/19 16:50 Dose: 50 mls/hr Latanoprost (Xalatan 0.005% Ophth Soln) 0 ml EYEBOTH BEDTIME [facility] Last Admin: 01/26/19 20:46 Dose: 1 drop Loratadine (Claritin) 5 mg PO BEDTIME [facility] Last Admin: 01/26/19 20:50 Dose: 5 mg Megestrol Acetate (Megace 40 Mg/Ml Susp) 800 mg PO DAILY [facility] Last Admin: 01/27/19 09:11 Dose: 800 mg Multivitamins (Thera) 1 each PO WITHBREAKFAST [facility] Last Admin: 01/27/19 09:11 Dose: 1 each Nystatin (Nystop) 0 gm TOP BID [facility] Last Admin: 01/27/19 09:11 Dose: 1 applic Ondansetron HCl (Zofran Odt) 4 mg PO Q8H PRN PRN Reason: Nausea Last Admin: 01/23/19 17:10 Dose: 4 mg Sertraline HCl (Zoloft) 25 mg PO DAILY@2100 [facility] Last Admin: 01/26/19 20:54 Dose: 25 mg Sodium Chloride (Saline Flush) 10 ml FLUSH ASDIRECTED PRN PRN Reason: Keep Vein Open Sodium Chloride (Sodium Chloride) 1 gm PO TID [facility] Last Admin: 01/27/19 09:11 Dose: 1 gm Verapamil HCl (Calan) 80 mg PO Q8H [facility] Last Admin: 01/27/19 06:23 Dose: 80 mg Discontinued Medications Albuterol/Ipratropium (Duoneb 3.0-0.5 Mg/3 Ml) 3 ml NEB ONETIME ONE Stop: 01/18/19 19:05 Last Admin: 01/18/19 19:09 Dose: 3 ml Aspirin (Aspirin) 325 mg PO BRK [facility] Last Admin: 01/21/19 09:01 Dose: 325 mg Lactated Ringer's (Ringers, Lactated) 1,000 mls @ 500 mls/hr IV .BOLUS ONE Stop: 01/18/19 21:50 Last Infusion: 01/18/19 23:37 Dose: Infused Potassium Chloride/Dextrose/Sod Cl (D5 Ns With 20 Meq Kcl) 1,000 mls @ 50 mls/ hr IV ASDIRECTED [facility] Last Infusion: 01/23/19 14:52 Dose: Infused Piperacillin Sod/Tazobactam (Sod 2.25 gm/ Sodium Chloride) 50 mls @ 100 mls/hr IV Q6HR [facility] Piperacillin Sod/Tazobactam (Sod 3.375 gm/ Sodium Chloride) 100 mls @ 200 mls/ hr IV Q6H [facility] Last Admin: 01/27/19 13:04 Dose: Not Given Dextrose/Sodium Chloride (Dextrose 5%-Normal Saline) 1,000 mls @ 100 mls/hr IV ASDIRECTED [facility] Last Infusion: 01/24/19 11:54 Dose: Infused Magnesium Sulfate 2 gm/ Premix 50 mls @ 25 mls/hr IV ONETIME ONE Stop: 01/24/19 14:59 Last Infusion: 01/24/19 16:02 Dose: Infused Dextrose/Water (Dextrose 5% In Water) 1,000 mls @ 50 mls/hr IV ASDIRECTED [facility] Dextrose/Sodium Chloride (Dextrose 5%-Normal Saline) 1,000 mls @ 50 mls/hr IV ASDIRECTED [facility] Last Admin: 01/25/19 10:09 Dose: 50 mls/hr Potassium Chloride 20 meq/ (Premix) 100 mls @ 50 mls/hr IV Q3H [facility] Stop: 01/25/19 02:59 Last Infusion: 01/25/19 04:43 Dose: Infused Potassium Chloride 20 meq/ (Premix) 100 mls @ 50 mls/hr IV Q2H [facility] Stop: 01/25/19 13:59 Last Infusion: 01/25/19 14:28 Dose: Infused Potassium Chloride 20 meq/ (Premix) 100 mls @ 50 mls/hr IV Q2H [facility] Stop: 01/26/19 14:44 Last Admin: 01/26/19 14:37 Dose: 50 mls/hr Sertraline 25mgOwn (Med) 1 each PO BEDTIME [facility] Last Admin: 01/23/19 22:40 Dose: Not Given Oseltamivir Phosphate (Tamiflu) 75 mg PO BID [facility] Stop: 01/22/19 22:46 Last Admin: 01/21/19 09:00 Dose: 75 mg Potassium Chloride (Potassium Chloride Solution) 40 meq PO NOW ONE Stop: 01/18/19 19:50 Last Admin: 01/18/19 20:03 Dose: 40 meq Potassium Chloride (Klor-Con 10) 40 meq PO ONETIME ONE Stop: 01/19/19 09:41 Last Admin: 01/19/19 11:07 Dose: 40 meq Potassium Chloride (Klor-Con 10) 40 meq PO ONETIME ONE Stop: 01/20/19 09:31 Last Admin: 01/20/19 09:33 Dose: 40 meq Sodium Chloride (Saline Flush) 10 ml FLUSH ASDIRECTED PRN PRN Reason: Keep Vein Open Last Admin: 01/18/19 19:00 Dose: 10 ml Sodium Chloride (Saline Flush) 10 ml FLUSH ASDIRECTED PRN PRN Reason: Keep Vein Open Sodium Chloride (Saline Flush) 10 ml FLUSH ASDIRECTED PRN PRN Reason: Keep Vein Open Verapamil HCl (Calan) 40 mg PO Q8H [facility] Last Admin: 01/21/19 22:52 Dose: 40 mg Verapamil HCl (Calan) 40 mg PO ONETIME ONE Stop: 01/21/19 22:22 Last Admin: 01/21/19 22:52 Dose: 40 mg - Exam General: Alert, Oriented HEENT: Pupils Equal, Pupils Reactive, EOMI, Mucous Membr. Moist/[place] Neck: Supple Lungs: Clear to Auscultation, Normal Respiratory Effort Cardiovascular: Regular Rate, Regular Rhythm GI/Abdominal Exam: Normal Bowel Sounds, Soft, Non-Tender, No Organomegaly, No Distention, No Abnormal Bruit, No Mass, Pelvis Stable (Female) Exam: Normal External Exam, Normal Speculum Exam, Normal Bimanual Exam Back Exam: Normal Inspection, Full Range of Motion Extremities: Normal Inspection, Normal Range of Motion, Non-Tender, No Pedal Edema, Normal Capillary Refill Skin: Warm, Dry, Intact Wound/Incisions: Healing Well Neurological: No New Focal Deficit Psy/Mental Status: Alert, Normal Affect, Normal Mood - Problem List & Annotations (1) Weakness generalized SNOMED Code(s): 02844856 Code(s): R53.1 - WEAKNESS Status: Acute Current Visit: Yes - Problem List Review Problem List Initiated/Reviewed/Updated: Yes - My Orders Last 24 Hours: My Active Orders 01/26/19 21:00 Fluticasone Propionate [Flonase] 0 gm NASBOTH BID Loratadine [Claritin] 5 mg PO BEDTIME - Plan Plan:: Generalized weakness due to low appetite/hypokalemia Now improving Continue Megace Continue to replace KCL IVF PT/OT Consider SNF rehab Influenza A infection -completed course of Tamiflu -supportive measures: Continue IV fluid hydration, prn tylenol Hyponatremia, improving -Sodium tablets 1 tid -Continue to monitor -continue IVF N/S -BMP daily Hypokalemia Unresolved Continue IV replacement Hypertension -continue verapamil, home med Anxiety/Depression -continue sertraline Candidiasis Nystatin powder BID DVT ppx -SC lovenox Code DNR/DNI Disposition: SNF rehab
[2019-01-27] MEDS: Dextrose 5%-0.9% NaCl with KCl 1,000 ML IV SCH (14:19)
[2019-01-27] MEDS ORDERED: Potassium Chloride 10% 20 MEQ/15 ML Soln 15 ML UD Cup PO SCH (18:00)
[2019-01-27] MEDS: Potassium Chloride 10 MEQ Tab.ER PO SCH (18:31)
[2019-01-27] MEDS: Loratadine 10 MG Tab PO SCH (21:10)
[2019-01-27] MEDS: Sertraline 50 MG Tab PO SCH (21:10)
[2019-01-27] MEDS: Latanoprost 0.005% Ophth Soln 2.5 ML Bottle**OWN MED EYEBOTH SCH (21:11)
[2019-01-28] MEDS: Albuterol/Ipratropium 3.0-0.5 MG/3 ML Neb Soln NEB SCH ×2 (01:05→06:10)
[2019-01-28] MEDS: Famotidine 20 MG Tab**OWN MED PO SCH (09:18)
[2019-01-28] MEDS: Megestrol Susp 40 MG/ML 10 ML UD Cup PO SCH (09:18)
[2019-01-28] MEDS: Aspirin 81 MG Tab.Chew PO SCH (09:18)
[2019-01-28] MEDS: Multivitamins,Therapeutic Tab PO SCH (09:18)
[2019-01-28] MEDS: Potassium Chloride 10 MEQ Tab.ER PO SCH (09:18)
[2019-01-28] MEDS: Fluticasone Propionate Nasal Spray 16 GM Bottle NASBOTH SCH (09:18)
[2019-01-28] MEDS: Sodium Chloride 1 GM Tab PO SCH ×2 (09:18→13:58)
[2019-01-28] MEDS: Clopidogrel 75 MG Tab**OWN MED PO SCH (09:18)
[2019-01-28] MEDS: Enoxaparin 40 MG/0.4 ML Syringe SUBCUT SCH (09:18)
[2019-01-28] MEDS: Nystatin Topical Powder 30 GM Bottle TOP SCH (09:19)
[2019-01-28] MEDS: DORZOLAMIDE 2% EYEBOTH SCH (09:19)
--- NOTE | 2019-01-28 11:58 | PCM.PN ---
- General Info Date of Service: 01/28/19 Admission Dx/Problem (Free Text): Admission Diagnosis/Problem Admission Diagnosis/Problem Influenza due to influenza A virus Subjective Update: 78 yo F admitted with the flu, poor appetite. She completed a course of Tamiflu. She was seen and examined today. Her overall condition is improving but still feels weak. Plan is for NH placement. Awaiting approval. OK for DC today - Review of Systems General: Reports: No Symptoms HEENT: Reports: No Symptoms Pulmonary: Reports: No Symptoms Cardiovascular: Reports: No Symptoms Gastrointestinal: Reports: No Symptoms Genitourinary: Reports: No Symptoms Musculoskeletal: Reports: No Symptoms Skin: Reports: No Symptoms - Patient Data Vitals - Most Recent: Last Vital Signs Temp 37.0 C 01/28/19 07:35 Pulse 80 01/28/19 07:35 Resp 20 01/28/19 07:35 BP 175/80 H 01/28/19 07:35 Pulse Ox 97 01/28/19 07:35 Weight - Most Recent: 67.358 kg I&O - Last 24 Hours: Intake & Output 01/27/19 01/28/19 01/28/19 22:59 06:59 14:59 Intake Total 100 Output Total 250 Balance -150 Med Orders - Current: Current Medications Acetaminophen (Tylenol) 650 mg PO Q6H PRN PRN Reason: Fever Last Admin: 01/25/19 20:14 Dose: 650 mg Albuterol (Proventil Neb Soln) 2.5 mg NEB Q4HRRT PRN PRN Reason: Shortness of Breath Last Admin: 01/23/19 21:12 Dose: 2.5 mg Albuterol/Ipratropium (Duoneb 3.0-0.5 Mg/3 Ml) 3 ml NEB Q6HRRT [facility] Last Admin: 01/28/19 06:10 Dose: 3 ml Aspirin (Aspirin) 81 mg PO WITHBREAKFAST [facility] Last Admin: 01/28/19 09:18 Dose: 81 mg Clopidogrel Bisulfate (Plavix) 75 mg PO DAILY [facility] Last Admin: 01/28/19 09:18 Dose: 75 mg Dorzolamide HCl (Trusopt 2% Ophth Soln) 0 ml EYEBOTH BID [facility] Last Admin: 01/28/19 09:19 Dose: 1 drop Enoxaparin Sodium (Lovenox) 40 mg SUBCUT DAILY [facility] Last Admin: 01/28/19 09:18 Dose: 40 mg Famotidine (Pepcid) 20 mg PO DAILY [facility] Last Admin: 01/28/19 09:18 Dose: 20 mg Fluticasone Propionate (Flonase) 0 gm NASBOTH BID [facility] Last Admin: 01/28/19 09:18 Dose: 1 spray Guaifenesin/Phenylephrine HCl (Robitussin Dm) 5 ml PO Q4H PRN PRN Reason: Cough Last Admin: 01/25/19 20:27 Dose: 5 ml Potassium Chloride/Dextrose/Sod Cl (D5 Ns With 20 Meq Kcl) 1,000 mls @ 50 mls/ hr IV ASDIRECTED [facility] Last Infusion: 01/28/19 11:11 Dose: Infused Latanoprost (Xalatan 0.005% Ophth Soln) 0 ml EYEBOTH BEDTIME [facility] Last Admin: 01/27/19 21:11 Dose: 1 drop Loratadine (Claritin) 5 mg PO BEDTIME [facility] Last Admin: 01/27/19 21:10 Dose: 5 mg Megestrol Acetate (Megace 40 Mg/Ml Susp) 800 mg PO DAILY [facility] Last Admin: 01/28/19 09:18 Dose: 800 mg Multivitamins (Thera) 1 each PO WITHBREAKFAST [facility] Last Admin: 01/28/19 09:18 Dose: 1 each Nystatin (Nystop) 0 gm TOP BID [facility] Last Admin: 01/28/19 09:19 Dose: 1 applic Ondansetron HCl (Zofran Odt) 4 mg PO Q8H PRN PRN Reason: Nausea Last Admin: 01/23/19 17:10 Dose: 4 mg Potassium Chloride (Klor-Con 10) 20 meq PO BIDMEALS [facility] Last Admin: 01/28/19 09:18 Dose: 20 meq Sertraline HCl (Zoloft) 25 mg PO DAILY@2100 [facility] Last Admin: 01/27/19 21:10 Dose: 25 mg Sodium Chloride (Saline Flush) 10 ml FLUSH ASDIRECTED PRN PRN Reason: Keep Vein Open Sodium Chloride (Sodium Chloride) 1 gm PO TID [facility] Last Admin: 01/28/19 09:18 Dose: 1 gm Verapamil HCl (Calan) 80 mg PO Q8H [facility] Last Admin: 01/28/19 06:10 Dose: 80 mg Discontinued Medications Albuterol/Ipratropium (Duoneb 3.0-0.5 Mg/3 Ml) 3 ml NEB ONETIME ONE Stop: 01/18/19 19:05 Last Admin: 01/18/19 19:09 Dose: 3 ml Aspirin (Aspirin) 325 mg PO BRK [facility] Last Admin: 01/21/19 09:01 Dose: 325 mg Lactated Ringer's (Ringers, Lactated) 1,000 mls @ 500 mls/hr IV .BOLUS ONE Stop: 01/18/19 21:50 Last Infusion: 01/18/19 23:37 Dose: Infused Potassium Chloride/Dextrose/Sod Cl (D5 Ns With 20 Meq Kcl) 1,000 mls @ 50 mls/ hr IV ASDIRECTED [facility] Last Infusion: 01/23/19 14:52 Dose: Infused Piperacillin Sod/Tazobactam (Sod 2.25 gm/ Sodium Chloride) 50 mls @ 100 mls/hr IV Q6HR [facility] Piperacillin Sod/Tazobactam (Sod 3.375 gm/ Sodium Chloride) 100 mls @ 200 mls/ hr IV Q6H [facility] Last Admin: 01/27/19 13:04 Dose: Not Given Dextrose/Sodium Chloride (Dextrose 5%-Normal Saline) 1,000 mls @ 100 mls/hr IV ASDIRECTED [facility] Last Infusion: 01/24/19 11:54 Dose: Infused Magnesium Sulfate 2 gm/ Premix 50 mls @ 25 mls/hr IV ONETIME ONE Stop: 01/24/19 14:59 Last Infusion: 01/24/19 16:02 Dose: Infused Dextrose/Water (Dextrose 5% In Water) 1,000 mls @ 50 mls/hr IV ASDIRECTED [facility] Dextrose/Sodium Chloride (Dextrose 5%-Normal Saline) 1,000 mls @ 50 mls/hr IV ASDIRECTED [facility] Last Admin: 01/25/19 10:09 Dose: 50 mls/hr Potassium Chloride 20 meq/ (Premix) 100 mls @ 50 mls/hr IV Q3H [facility] Stop: 01/25/19 02:59 Last Infusion: 01/25/19 04:43 Dose: Infused Potassium Chloride 20 meq/ (Premix) 100 mls @ 50 mls/hr IV Q2H [facility] Stop: 01/25/19 13:59 Last Infusion: 01/25/19 14:28 Dose: Infused Potassium Chloride 20 meq/ (Premix) 100 mls @ 50 mls/hr IV Q2H [facility] Stop: 01/26/19 14:44 Last Admin: 01/26/19 14:37 Dose: 50 mls/hr Sertraline 25mgOwn (Med) 1 each PO BEDTIME [facility] Last Admin: 01/23/19 22:40 Dose: Not Given Oseltamivir Phosphate (Tamiflu) 75 mg PO BID [facility] Stop: 01/22/19 22:46 Last Admin: 01/21/19 09:00 Dose: 75 mg Potassium Chloride (Potassium Chloride Solution) 40 meq PO NOW ONE Stop: 01/18/19 19:50 Last Admin: 01/18/19 20:03 Dose: 40 meq Potassium Chloride (Klor-Con 10) 40 meq PO ONETIME ONE Stop: 01/19/19 09:41 Last Admin: 01/19/19 11:07 Dose: 40 meq Potassium Chloride (Klor-Con 10) 40 meq PO ONETIME ONE Stop: 01/20/19 09:31 Last Admin: 01/20/19 09:33 Dose: 40 meq Sodium Chloride (Saline Flush) 10 ml FLUSH ASDIRECTED PRN PRN Reason: Keep Vein Open Last Admin: 01/18/19 19:00 Dose: 10 ml Sodium Chloride (Saline Flush) 10 ml FLUSH ASDIRECTED PRN PRN Reason: Keep Vein Open Sodium Chloride (Saline Flush) 10 ml FLUSH ASDIRECTED PRN PRN Reason: Keep Vein Open Verapamil HCl (Calan) 40 mg PO Q8H [facility] Last Admin: 01/21/19 22:52 Dose: 40 mg Verapamil HCl (Calan) 40 mg PO ONETIME ONE Stop: 01/21/19 22:22 Last Admin: 01/21/19 22:52 Dose: 40 mg - Exam General: Alert, Oriented HEENT: Pupils Equal Neck: Supple Lungs: Clear to Auscultation Cardiovascular: Regular Rate, Regular Rhythm GI/Abdominal Exam: Normal Bowel Sounds - Problem List Review Problem List Initiated/Reviewed/Updated: Yes - My Orders Last 24 Hours: My Active Orders 01/28/19 11:25 POTASSIUM,K [CHEM] Routine - Plan Plan:: Generalized weakness due to low appetite/hypokalemia Now improving Continue Megace Continue to replace KCL PT/OT for SNF Influenza A infection -completed course of Tamiflu Hypokalemia improving Continue oral replacement Hypertension -continue verapamil, home med Anxiety/Depression -continue sertraline Candidiasis Nystatin powder BID DVT ppx -SC lovenox Code DNR/DNI Disposition: SNF today if available
--- NOTE | 2019-01-28 12:20 | PCM.DCSUM1 ---
Discharge Summary - Hospital Course Free Text/Narrative:: 78 yo F with PMH of COPD, hypertension, depression, anxiety disorder, HLD, osteoarthritis, glaucoma, who presents with shortness of breath, cough, anorexia , fatigue of four days duration. Patient lives in a NH. In the past few weeks, several residents of the NH have had the flu Patient's symptoms started four days ago with shortness of breath, cough. She was started on Tamiflu and levofloxacin by her PCP on 01/16/2019. Symptoms worsened and she was reported to be weak, unable to eat through the day and tired. No chest pain, no n/v, no abd pain, no urinary symptoms In the ED, she was afebrile, flu screen was positive for influenza A, Na was low (128) and potassium was also low 2.8. She received potassium in the ED. Had slow recovery from the flu during admission and was OK to return to correction. Will get PT/OT at [place]. Diagnosis: Stroke: No - Discharge Data Discharge Date: 01/28/19 Discharge Disposition: DC/Tfer to [facility] 03 Condition: Good - Patient Summary/Data Consults: Consultations 01/20/19 09:11 OT Evaluation and Treatment [CONS] Routine PT Evaluation and Treatment [CONS] Routine - Patient Instructions Diet: Regular Diet as Tolerated Activity: As Tolerated Driving: Do Not Drive Showering/Bathing: May Shower - Discharge Plan *PRESCRIPTION DRUG MONITORING PROGRAM REVIEWED*: Not Applicable *COPY OF PRESCRIPTION DRUG MONITORING REPORT IN PATIENT QUINCY: Not Applicable Home Medications: Home Meds Acetaminophen [Tylenol Extra Strength] 500 mg PO Q6HR PRN 04/04/15 [History] Acetaminophen [Tylenol] 650 mg PO TID 04/04/15 [History] Dorzolamide [Trusopt 2% Ophth Soln] 1 drop EYEBOTH BID 04/04/15 [History] Famotidine [Pepcid AC] 20 mg PO DAILY 04/04/15 [History] Fexofenadine HCl [Mae Allergy] 60 mg PO BEDTIME 04/04/15 [History] Latanoprost [Xalatan 0.005% Ophth Soln] 1 drop EYEBOTH BEDTIME 04/04/15 [History ] Sertraline [Zoloft] 25 mg PO BEDTIME 01/18/19 [History] Aspirin [Adult Low Dose Aspirin EC] 81 mg PO DAILY 01/28/19 [History] Potassium Chloride [Klor-Con M20] 20 meq PO BID 01/28/19 [History] Sodium Chloride 1,000 mg PO BIDAC 01/28/19 [History] Verapamil [Calan] 80 mg PO Q8H 01/28/19 [History] Oxygen Therapy Mode: Room Air Patient Handouts: Chronic Obstructive Pulmonary Disease Exacerbation, Easy-to- Read, Influenza, Adult, [id number], Chronic Obstructive Pulmonary Disease, [id number] Referrals: Monica Short MD [Physician] - (Dr. Short will admit to [facility] and follow her there. ) - Discharge Summary/Plan Comment DC Time >30 min.: Yes - Patient Data Vitals - Most Recent: Last Vital Signs Temp 37.0 C 01/28/19 07:35 Pulse 80 01/28/19 07:35 Resp 20 01/28/19 07:35 BP 175/80 H 01/28/19 07:35 Pulse Ox 97 01/28/19 07:35 Weight - Most Recent: 67.358 kg I&O - Last 24 hours: Intake & Output 01/27/19 01/28/19 01/28/19 22:59 06:59 14:59 Intake Total 100 Output Total 250 Balance -150 Lab Results - Last 24 hrs: Laboratory Results - last 24 hr 01/28/19 Range/Units 11:25 Potassium 3.9 (3.6-5.0) mmol/L Med Orders - Current: Current Medications Acetaminophen (Tylenol) 650 mg PO Q6H PRN PRN Reason: Fever Last Admin: 01/25/19 20:14 Dose: 650 mg Albuterol (Proventil Neb Soln) 2.5 mg NEB Q4HRRT PRN PRN Reason: Shortness of Breath Last Admin: 01/23/19 21:12 Dose: 2.5 mg Albuterol/Ipratropium (Duoneb 3.0-0.5 Mg/3 Ml) 3 ml NEB Q6HRRT [facility] Last Admin: 01/28/19 06:10 Dose: 3 ml Aspirin (Aspirin) 81 mg PO WITHBREAKFAST [facility] Last Admin: 01/28/19 09:18 Dose: 81 mg Clopidogrel Bisulfate (Plavix) 75 mg PO DAILY [facility] Last Admin: 01/28/19 09:18 Dose: 75 mg Dorzolamide HCl (Trusopt 2% Ophth Soln) 0 ml EYEBOTH BID [facility] Last Admin: 01/28/19 09:19 Dose: 1 drop Enoxaparin Sodium (Lovenox) 40 mg SUBCUT DAILY [facility] Last Admin: 01/28/19 09:18 Dose: 40 mg Famotidine (Pepcid) 20 mg PO DAILY [facility] Last Admin: 01/28/19 09:18 Dose: 20 mg Fluticasone Propionate (Flonase) 0 gm NASBOTH BID [facility] Last Admin: 01/28/19 09:18 Dose: 1 spray Guaifenesin/Phenylephrine HCl (Robitussin Dm) 5 ml PO Q4H PRN PRN Reason: Cough Last Admin: 01/25/19 20:27 Dose: 5 ml Potassium Chloride/Dextrose/Sod Cl (D5 Ns With 20 Meq Kcl) 1,000 mls @ 50 mls/ hr IV ASDIRECTED [facility] Last Infusion: 01/28/19 11:11 Dose: Infused Latanoprost (Xalatan 0.005% Ophth Soln) 0 ml EYEBOTH BEDTIME [facility] Last Admin: 01/27/19 21:11 Dose: 1 drop Loratadine (Claritin) 5 mg PO BEDTIME [facility] Last Admin: 01/27/19 21:10 Dose: 5 mg Megestrol Acetate (Megace 40 Mg/Ml Susp) 800 mg PO DAILY [facility] Last Admin: 01/28/19 09:18 Dose: 800 mg Multivitamins (Thera) 1 each PO WITHBREAKFAST [facility] Last Admin: 01/28/19 09:18 Dose: 1 each Nystatin (Nystop) 0 gm TOP BID [facility] Last Admin: 01/28/19 09:19 Dose: 1 applic Ondansetron HCl (Zofran Odt) 4 mg PO Q8H PRN PRN Reason: Nausea Last Admin: 01/23/19 17:10 Dose: 4 mg Potassium Chloride (Klor-Con 10) 20 meq PO BIDMEALS [facility] Last Admin: 01/28/19 09:18 Dose: 20 meq Sertraline HCl (Zoloft) 25 mg PO DAILY@2100 [facility] Last Admin: 01/27/19 21:10 Dose: 25 mg Sodium Chloride (Saline Flush) 10 ml FLUSH ASDIRECTED PRN PRN Reason: Keep Vein Open Sodium Chloride (Sodium Chloride) 1 gm PO TID [facility] Last Admin: 01/28/19 09:18 Dose: 1 gm Verapamil HCl (Calan) 80 mg PO Q8H [facility] Last Admin: 01/28/19 06:10 Dose: 80 mg Discontinued Medications Albuterol/Ipratropium (Duoneb 3.0-0.5 Mg/3 Ml) 3 ml NEB ONETIME ONE Stop: 01/18/19 19:05 Last Admin: 01/18/19 19:09 Dose: 3 ml Aspirin (Aspirin) 325 mg PO BRK [facility] Last Admin: 01/21/19 09:01 Dose: 325 mg Lactated Ringer's (Ringers, Lactated) 1,000 mls @ 500 mls/hr IV .BOLUS ONE Stop: 01/18/19 21:50 Last Infusion: 01/18/19 23:37 Dose: Infused Potassium Chloride/Dextrose/Sod Cl (D5 Ns With 20 Meq Kcl) 1,000 mls @ 50 mls/ hr IV ASDIRECTED [facility] Last Infusion: 01/23/19 14:52 Dose: Infused Piperacillin Sod/Tazobactam (Sod 2.25 gm/ Sodium Chloride) 50 mls @ 100 mls/hr IV Q6HR [facility] Piperacillin Sod/Tazobactam (Sod 3.375 gm/ Sodium Chloride) 100 mls @ 200 mls/ hr IV Q6H [facility] Last Admin: 01/27/19 13:04 Dose: Not Given Dextrose/Sodium Chloride (Dextrose 5%-Normal Saline) 1,000 mls @ 100 mls/hr IV ASDIRECTED [facility] Last Infusion: 01/24/19 11:54 Dose: Infused Magnesium Sulfate 2 gm/ Premix 50 mls @ 25 mls/hr IV ONETIME ONE Stop: 01/24/19 14:59 Last Infusion: 01/24/19 16:02 Dose: Infused Dextrose/Water (Dextrose 5% In Water) 1,000 mls @ 50 mls/hr IV ASDIRECTED [facility] Dextrose/Sodium Chloride (Dextrose 5%-Normal Saline) 1,000 mls @ 50 mls/hr IV ASDIRECTED [facility] Last Admin: 01/25/19 10:09 Dose: 50 mls/hr Potassium Chloride 20 meq/ (Premix) 100 mls @ 50 mls/hr IV Q3H [facility] Stop: 01/25/19 02:59 Last Infusion: 01/25/19 04:43 Dose: Infused Potassium Chloride 20 meq/ (Premix) 100 mls @ 50 mls/hr IV Q2H [facility] Stop: 01/25/19 13:59 Last Infusion: 01/25/19 14:28 Dose: Infused Potassium Chloride 20 meq/ (Premix) 100 mls @ 50 mls/hr IV Q2H [facility] Stop: 01/26/19 14:44 Last Admin: 01/26/19 14:37 Dose: 50 mls/hr Sertraline 25mgOwn (Med) 1 each PO BEDTIME [facility] Last Admin: 01/23/19 22:40 Dose: Not Given Oseltamivir Phosphate (Tamiflu) 75 mg PO BID [facility] Stop: 01/22/19 22:46 Last Admin: 01/21/19 09:00 Dose: 75 mg Potassium Chloride (Potassium Chloride Solution) 40 meq PO NOW ONE Stop: 01/18/19 19:50 Last Admin: 01/18/19 20:03 Dose: 40 meq Potassium Chloride (Klor-Con 10) 40 meq PO ONETIME ONE Stop: 01/19/19 09:41 Last Admin: 01/19/19 11:07 Dose: 40 meq Potassium Chloride (Klor-Con 10) 40 meq PO ONETIME ONE Stop: 01/20/19 09:31 Last Admin: 01/20/19 09:33 Dose: 40 meq Sodium Chloride (Saline Flush) 10 ml FLUSH ASDIRECTED PRN PRN Reason: Keep Vein Open Last Admin: 01/18/19 19:00 Dose: 10 ml Sodium Chloride (Saline Flush) 10 ml FLUSH ASDIRECTED PRN PRN Reason: Keep Vein Open Sodium Chloride (Saline Flush) 10 ml FLUSH ASDIRECTED PRN PRN Reason: Keep Vein Open Verapamil HCl (Calan) 40 mg PO Q8H [facility] Last Admin: 01/21/19 22:52 Dose: 40 mg Verapamil HCl (Calan) 40 mg PO ONETIME ONE Stop: 01/21/19 22:22 Last Admin: 01/21/19 22:52 Dose: 40 mg
[2019-01-28 13:29] VITALS: BP 169/78
== END 2019-01-28 14:12 | DRG 194 ==
LOC: DL.ED 18:54 → DL.MS 20:31 → UNDOADMOB 20:31 → INTOOBSV 22:24 → OBSVTOIN 22:24 → DL.MS 22:24 → OBSVTOIN 01-21 16:15 → DL.MS 01-21 16:15
PROVIDERS: ADMIT Hospitalist; ATTEND Student in an Organized Health Care Education/Training Program
DX: J10.1 Influenza due to other identified influenza virus with other respiratory manifestations (principal); J44.1 Chronic obstructive pulmonary disease with (acute) exacerbation; R06.02 Shortness of breath; E87.1 Hypo-osmolality and hyponatremia; R53.83 Other fatigue; I10 Essential (primary) hypertension; F41.9 Anxiety disorder, unspecified; F32.9 Major depressive disorder, single episode, unspecified; E78.5 Hyperlipidemia, unspecified; M19.90 Unspecified osteoarthritis, unspecified site; H40.9 Unspecified glaucoma; E78.00 Pure hypercholesterolemia, unspecified; K25.9 Gastric ulcer, unspecified as acute or chronic, without hemorrhage or perforation; R05 Cough; B37.9 Candidiasis, unspecified; R53.1 Weakness; E86.0 Dehydration; R53.81 Other malaise; R51 Headache; E87.6 Hypokalemia; R09.02 Hypoxemia; Z91.040 Latex allergy status; Z91.048 Other nonmedicinal substance allergy status; Z66 Do not resuscitate; Z79.899 Other long term (current) drug therapy; Z79.82 Long term (current) use of aspirin
CPT/HCPCS: 36415 ×2; 71045; 80048; 80053; 83605; 85025 ×2; 86140; 87040 ×2; 87070; 87205; 87804 ×2; 94640 ×3; 96361 ×2; 96365; 96366 ×3; 96367; 96372 ×3; 99284; 99285; A9270 ×7; G0378 ×3; J1650; J3480; J7120; 81001; 83735; 84100; 84132; 87086; 94010; 94667; 96360; 97162-GP; 97166-GO; 97530-GO; J2543; J3475; J7042; J7050; J7613-GY; J7620-GY